=== PATIENT | female | born 1960 | race Two or more races ===

== ENCOUNTER 2020-09-04 11:01 | Inpatient (IN) | payer MEDICARE, OTHER ==
[~2020-09-04] VITALS: Ht 177.8 cm; Wt 108.8 kg
[2020-09-04] MEDS ORDERED: SODIUM CHLORIDE 0.9% 500 ML IVB ONE (12:00)
[2020-09-04 12:29] LABS: Basophils # (auto) 0.1 10 ^3/uL (0-0.2); Basophils % (auto) 0.5 % (0.0-2.0); Eosinophils # (auto) 0 10 ^3/uL (0-0.8); Eosinophils % (auto) 0.1 % (0.0-7.0); Hematocrit 35.6 % (36.0-46.0); Hemoglobin 11.4 g/dL (12.2-16.2); Lymphocytes # (auto) 0.5 10 ^3/uL (0.4-5.4); Lymphocytes % (auto) 4.7 % (10.0-50.0); Mean Corpuscular Hemoglobin 32.4 pg (28.0-32.0); Mean Corpuscular Hgb Conc. 32.2 g/dL (32.0-36.0); Mean Corpuscular Volume 100.6 fL (80.0-100.0); Monocytes # (auto) 0.8 10 ^3/uL (0-1.3); Neutrophils # (auto) 9.6 10 ^3/uL (1.6-8.6); Neutrophils % (auto) 87.7 % (37.0-80.0); Nucleated Red Blood Cells % 0.1 %; Platelet Count (auto) 308 10^3/uL (140-450); Red Blood Cells 3.54 10^6/uL (4.0-5.20); Red Cell Distribution Width 16.3 % (11.8-14.3); White Blood Cell 10.9 10^3/uL (4.4-10.8)
[2020-09-04 12:59] LABS: Albumin 3.9 g/dL (3.4-5.0); Calcium 8.9 mg/dL (8.5-10.1); Magnesium 2.6 mg/dL (1.6-2.6)
[2020-09-04 13:02] LABS: BUN/Creatinine Ratio 19.6; Bilirubin, Total 0.2 mg/dL (0.2-1.0); Total Protein 8.1 g/dL (6.4-8.2)
[2020-09-04 13:23] LABS: Potassium 5.6 mmol/L (3.5-5.1)
[2020-09-04] MEDS ORDERED: DEXTROSE (50%) 50ML SYRG IV ONE ×2 (13:45→23:45)
[2020-09-04] MEDS ORDERED: InsuLIN REG 1unit/0.01ml Soln (100units/ml) IV ONE (13:45)
[2020-09-04] MEDS ORDERED: CALCIUM GLUC 4.65meq/50ml D5AE 50 ML IV ONE ×2 (13:45→23:45)
[2020-09-04] MEDS ORDERED: SODIUM BICARBONATE 8.4% INJ 50ML SYRINGE IV ONE (13:45)
[2020-09-04 19:51] LABS: BUN/Creatinine Ratio 21.5; Calcium 8.6 mg/dL (8.5-10.1)
[2020-09-04 19:59] LABS: Potassium 6.4 mmol/L (3.5-5.1)
[2020-09-04] MEDS ORDERED: ALBUTEROL SULF HFA 90MCG INH 200DOSE IN SCH (22:00)
[2020-09-04] MEDS ORDERED: ALBUTEROL SULF HFA 90MCG INH 200DOSE IN PRN (22:00)
[2020-09-04] MEDS ORDERED: MORPHINE SULF INJ 2 MG/ML SYRINGE 1ML IV PRN (22:45)
[2020-09-04] MEDS ORDERED: ONDANSETRON HCL 4 MG/2 ML VIAL IV PRN (22:45)
[2020-09-04] MEDS ORDERED: MORPHINE SULFATE 4 MG/ML SYR/VIAL IV PRN (22:45)
[2020-09-04] MEDS ORDERED: NITROGLYCERIN 0.4 MG SL TAB SL PRN (22:45)
[2020-09-04] MEDS ORDERED: DOCUSATE SOD 100 MG CAP PO PRN (22:45)
[2020-09-04] MEDS ORDERED: InsuLIN REG 1unit/0.01ml Soln (100units/ml) SC ONE (23:45)
[2020-09-04] MEDS ORDERED: SODIUM ZIRCONIUM CYCL 10 GM PAK PO ONE (23:45)
[2020-09-04] MEDS ORDERED: SODIUM BICARBONATE 8.4 % INJ 50ML VIAL IV ONE (23:45)
[2020-09-05 02:11] LABS: Amphetamine Screen, Urine NEGATIVE (NEGATIVE); Barbiturate Scree,Urine NEGATIVE (NEGATIVE); Benzodiazephine Screen, Urine NEGATIVE (NEGATIVE); Cannabinoid Screen, Urine NEGATIVE (NEGATIVE); Cocaine Screen, Urine NEGATIVE (NEGATIVE); Opiate Scree,Urine POSITIVE (NEGATIVE); Phencyclidine Screen, Urine NEGATIVE (NEGATIVE)
[2020-09-05 02:18] LABS: Alcohol, Urine < 3.0 mg/dL (0-10)
[2020-09-05 02:19] LABS: Urine Amorphous Crystal FEW /hpf (None Seen); Urine Bacteria FEW /hpf (None Seen); Urine Blood Negative /uL (Negative); Urine Hyaline Cast FEW /lpf (0 - 2); Urine Specific Gravity 1.013 (1.001-1.035); Urine WBC 1 /hpf (0 - 5)
[2020-09-05] MEDS: SODIUM CHLOR 0.9% PF (SALINE LOCK) 10ML VIAL/SYR IV SCH ×3 (05:47→22:00)
[2020-09-05] MEDS ORDERED: FAMOTIDINE 20 MG TAB PO SCH (10:00)
[2020-09-05] MEDS: HEPARIN SODIUM (PORCINE) 5000 UNITS/ML 1ML VIAL SC SCH (10:00)
[2020-09-05] MEDS ORDERED: MULTIPLE VITAMIN TAB PO SCH (10:00)
[2020-09-05] MEDS ORDERED: ZINC SULFATE 220mg CAP or TAB PO SCH (10:00)
[2020-09-05 10:31] LABS: Basophils # (auto) 0 10 ^3/uL (0-0.2); Basophils % (auto) 0.1 % (0.0-2.0); Eosinophils # (auto) 0 10 ^3/uL (0-0.8); Eosinophils % (auto) 0.2 % (0.0-7.0); Hematocrit 35.1 % (36.0-46.0); Hemoglobin 11.4 g/dL (12.2-16.2); Lymphocytes # (auto) 1.1 10 ^3/uL (0.4-5.4); Lymphocytes % (auto) 10.5 % (10.0-50.0); Mean Corpuscular Hemoglobin 32.4 pg (28.0-32.0); Mean Corpuscular Hgb Conc. 32.6 g/dL (32.0-36.0); Mean Corpuscular Volume 99.5 fL (80.0-100.0); Monocytes # (auto) 1.1 10 ^3/uL (0-1.3); Neutrophils # (auto) 8.6 10 ^3/uL (1.6-8.6); Neutrophils % (auto) 79.2 % (37.0-80.0); Nucleated Red Blood Cells % 0.3 %; Platelet Count (auto) 329 10^3/uL (140-450); Red Blood Cells 3.53 10^6/uL (4.0-5.20); Red Cell Distribution Width 16.9 % (11.8-14.3); White Blood Cell 10.8 10^3/uL (4.4-10.8)
[2020-09-05 10:53] LABS: Albumin 3.8 g/dL (3.4-5.0); Calcium 8.7 mg/dL (8.5-10.1)
[2020-09-05 10:58] LABS: BUN/Creatinine Ratio 15.4; Bilirubin, Total 0.2 mg/dL (0.2-1.0); Total Protein 8.1 g/dL (6.4-8.2)
[2020-09-05] MEDS: ASCORBIC ACID 500 MG TAB PO SCH ×2 (10:59→22:00)
[2020-09-05 11:00] LABS: Potassium 6.4 mmol/L (3.5-5.1)
[2020-09-05] MEDS ORDERED: FUROSEMIDE 40 MG/4 ML VIAL IV ONE (11:15)
[2020-09-05] MEDS ORDERED: CALCIUM CHL 100MG/ML 1,000 MG in D5W 5% 100 ML IV ONE (11:15)
[2020-09-05] MEDS ORDERED: ALBUTEROL SULF 2.5 MG/0.5ML(0.5%) NEB SOLN NEB ONE (11:15)
[2020-09-05] MEDS ORDERED: DEXTROSE (50%) 50ML SYRG IV ONE (11:15)
[2020-09-05] MEDS ORDERED: SODIUM ZIRCONIUM CYCL 10 GM PAK PO ONE (11:15)
[2020-09-05] MEDS ORDERED: SODIUM BICARBONATE 8.4% INJ 50ML SYRINGE IV ONE (11:15)
[2020-09-05] MEDS ORDERED: InsuLIN REG 1unit/0.01ml Soln (100units/ml) IV ONE (11:15)
[2020-09-05] MEDS ORDERED: ALBUTEROL SULF 2.5 MG/0.5ML(0.5%) NEB SOLN ONE ×2 (11:20→11:23)
[2020-09-05] MEDS ORDERED: SODIUM CHLORIDE 0.9% 1,000 ML IV ONE (13:00)
[2020-09-05] MEDS: SODIUM ZIRCONIUM CYCL 10 GM PAK PO SCH (16:11)
--- NOTE | 2020-09-05 17:30 | NUR ---
Telemetry admit from [facility] admitted to Telemetry unit after SBAR received. Patient oriented to Renee Hunt RN, unit, room, bed, and unit policies regarding patient care and visiting hours. Patient now on continuous telemetry monitoring, tele box # [id number] and telemetry reading on arrival to unit is 106 ST. Patient placed on bedside oxygen @ 5LPM, weighed by bed scale and encouraged to call if she need something. All questions and concerns addressed, patient verbalized understanding. Note: Patient is lethargic. On O2 at 5 LPM. On Right eye patch Hx: Rt eye implant. Bed alarm on.
[2020-09-05] MEDS ORDERED: TRAM50TA2 PO (17:42)
[2020-09-05] MEDS ORDERED: LISI-275 PO (17:42)
[2020-09-05] MEDS ORDERED: IBUP800T24 PO (17:42)
--- NOTE | 2020-09-05 19:30 | NUR ---
Called the Pharmacy for Sodium Bicarbonate IV. Patient is lethargic. Endorsed patient to CHAUNCEY Rios.
[2020-09-05] MEDS: FUROSEMIDE 40 MG/4 ML VIAL IV SCH (19:32)
--- NOTE | 2020-09-05 19:55 | NUR ---
OPENING SHIFT NOTE Pt is resting in bed with eyes closed and resp rate is even and unlabored. Pt is on O2 5L by nc and skin is warm, dry and color is pink. Pt needs aggressive stimulation to get her to waken. Pt is able to state her name and that is all before she falls asleep again. Pt appears to be very lethargic and sedated. Will continue to monitor q1hr and prn. Bed is low, wheels are locked, and call light is with reach.
--- NOTE | 2020-09-05 21:00 | NUR ---
IV SITE IS SWOLLEN AND NOT ABLE TO FLUSH.
--- NOTE | 2020-09-05 21:15 | NUR ---
PT SAO2 DOWN IN THE LOW 80'S AND DIPPING DOWN TO 78%. RT PAGED STAT AND PT PLACED ON SIMPLE MASK 10L. SAO2 UP TO 95%. PT SKIN IS WARM AND DRY AND COLOR IS WNL.
--- NOTE | 2020-09-05 21:20 | NUR ---
RT ARRIVED, CALLED HOSPITALIST, AND PT MOVED CLOSER TO NURSES STATION. WHEN SETTLED IN ROOM 276-B PT PLACED ON CPAP. PT SAO2 STABLE 98%.
[2020-09-05 21:21] LABS: Phosphorus 9.2 mg/dL (2.5-4.90)
[2020-09-05 22:00] VITALS: BP 102/46
--- NOTE | 2020-09-05 23:45 | NUR ---
NEW IV STARTED BY BATTER MIXER HELEN. LEFT HAND 22G.
[2020-09-06] VITALS (43 sets, daily range): BP systolic 80–170; BP diastolic 38–129
--- NOTE | 2020-09-06 00:56 | NUR ---
PT SAO2 HAS BEEN DECREASING DOWN TO THE LOW 70'S AND HAVING TO FREQUENTLY WAKE PT AND ASK HER TO TAKE DEEP BREATHS TO GET SAO2 BACK UP ABOVE 90%. RT PAGED AND PT IS NOW PLACED ON BIPAP.
[2020-09-06] MEDS: SODIUM ZIRCONIUM CYCL 10 GM PAK PO SCH ×4 (01:40→22:08)
[2020-09-06] MEDS: HEPARIN SODIUM (PORCINE) 5000 UNITS/ML 1ML VIAL SC SCH (01:41)
[2020-09-06] MEDS: SODIUM BICARBONATE 50ML VIAL 50 ML in SOD CHL 0.45% 1,000 ML IV SCH ×5 (05:59→22:10)
[2020-09-06] MEDS: SODIUM CHLOR 0.9% PF (SALINE LOCK) 10ML VIAL/SYR IV SCH ×3 (05:59→22:00)
--- NOTE | 2020-09-06 07:45 | NUR ---
Opening Shift Note Assumed care of patient who is asleep in bed. Patient is on BiPap. No S/S of distress/SOB or pain. Patient has a sitter at bedside for safety. Instructed on POC and to call for assist PRN, will continue to monitor for changes Q1hr and PRN. Bed is locked, bed alarm on and in lowest position.
[2020-09-06] MEDS ORDERED: VANCOMYCIN PER PHARMACY 0 MG IV SCH (09:00)
[2020-09-06] MEDS ORDERED: VANCOMYCIN 1GM/250ML 250 ML IV ONE (09:00)
[2020-09-06] MEDS ORDERED: CLINDAMYCIN 300MG IV 50 ML IV ONE (09:15)
--- NOTE | 2020-09-06 09:30 | NUR ---
IV insertion IV access obtained, via clean sterile technique by inserting [20] gauge catheter at [RIGHT AC] after [2] attempt(s). IV secured properly. No trauma to site. Patient tolerated well.
[2020-09-06] MEDS ORDERED: AZITHROMYCIN 500MG/ 250ML 250 ML IV ONE (10:00)
[2020-09-06] MEDS: FUROSEMIDE 40 MG/4 ML VIAL IV SCH (10:44)
[2020-09-06 11:03] LABS: BUN/Creatinine Ratio 15.8; Calcium 7.9 mg/dL (8.5-10.1)
[2020-09-06 11:12] LABS: Potassium 7.2 mmol/L (3.5-5.1)
--- NOTE | 2020-09-06 11:21 | NUR ---
CRITICAL LAB VALUE CRITICAL LAB VALUE OF POTASSIUM 7.2. PAGED DR. JUARES TO NOTIFY OF CRITICAL LAB VALUE. NEW ORDERS OBTAINED. PER DR. JUARES TO PLEASE PAGE DR. SANTIAGO. WILL AWAIT CALL BACK. WILL CONTINUE TO MONITOR PATIENT.
[2020-09-06] MEDS ORDERED: FUROSEMIDE 40 MG/4 ML VIAL IV ONE (11:30)
[2020-09-06] MEDS ORDERED: SODIUM BICARBONATE 8.4% INJ 50ML SYRINGE IV ONE (11:30)
[2020-09-06] MEDS ORDERED: InsuLIN REG 1unit/0.01ml Soln (100units/ml) IV ONE (11:30)
[2020-09-06] MEDS ORDERED: DEXTROSE (50%) 50ML SYRG IV ONE (11:30)
[2020-09-06] MEDS ORDERED: CALCIUM GLUC 4.65meq/50ml D5AE 50 ML IV ONE (11:30)
--- NOTE | 2020-09-06 11:45 | NUR ---
DR. JUARES AND DR. SANTIAGO AT BEDSIDE FOR POC AND CRITICAL LAB VALUE OF POTASSIUM. PER DR. JUARES ORDERS RECEIVED FOR HYPERKALEMIA AND WILL CARRY THEM OUT. PER DR. SANTIAGO TO REPEAT POTASSIUM LEVEL TO DETERMINE THE TREND. DR. JUARES WOULD LIKE TO TRANSFER PATIENT TO [facility]. DR. JUARES SPOKE TO FAMILY AND PATIENT IS FULL CODE. WILL CONTINUE WITH POC.
--- NOTE | 2020-09-06 13:15 | NUR ---
DR. REGINO LACY AT BEDSIDE FOR POC. BIPAP CHANGES WERE MADE BY DR. LACY RATE CHANGED TO 18, IPAP TO 22 AND O2 TO 75%. WILL AWAIT ABG DRAW AT [address]. WILL PAGE [address] LACY WITH RESULTS. WILL CONTINUE TO MONITOR PATIENT.
[2020-09-06] MEDS ORDERED: SODIUM BICARBONATE 8.4% INJ 50ML SYRINGE ONE ×2 (13:23→21:59)
[2020-09-06] MEDS ORDERED: SODIUM BICARBONATE 8.4 % INJ 50ML VIAL IV ONE ×2 (13:30)
[2020-09-06] MEDS ORDERED: SUCCINYLCHOLINE CHLORIDE 20 MG/ML 10ML VIAL IV ONE (13:31)
[2020-09-06] MEDS ORDERED: ROCURONIUM 10MG/ML 10ML VIAL IV ONE (13:36)
--- NOTE | 2020-09-06 13:39 | NUR ---
MEDS FOR INTUBATION PER DR. LACY ETOMIDATE 60MG IVP ROCURONIUM 60MG IVP
--- NOTE | 2020-09-06 13:40 | NUR ---
INTUBATION DR. LACY AT BEDSIDE TO INTUBATE PATIENT. PATIENT WILL BE TRANSFERRED TO [facility] ROOM [address]. DR. JUARES NOTIFIED OF PATIENTS INTUBATION AND TRANSFER. WILL NOTIFY FAMILY OF TRANSFER.
--- NOTE | 2020-09-06 13:40 | NUR ---
PT INTUBATED AT BEDSIDE BY MD LACY DUE TO ALOC AND ACUTE HYPERCAPNIC RESP FAILURE. INTUBATED WITH AN 8.0 ETT SECURED AT 22 CM AT LIP LINE. PT WILL BE TRANSFERRED TO [facility].
--- NOTE | 2020-09-06 13:55 | NUR ---
TRANSFERRED TO [facility] WITH RT X2, RN X2 REPORT REC'D FROM [facility].
--- NOTE | 2020-09-06 14:00 | NUR ---
ASSESSMENT PT CONT NONRESPONSIVE TO DEEP STERNAL RUB SINCE BEFORE INTUBATION NO SEDATION ON BOARD. HAS EMPTY RT EYE SOCKET. LT EYE NONREACTIVE. NG TUBE INSERTED RT NARE WITH #16 FR, 60CM. PLACEMENT PER AIR BOLUS. VENT SETTINGS AC 20, VT 450, PEEP 8, FIO2 100%. DURING INTUBATION MUCH GASTRIC CONTENTS SUCTIONED OUT WITH MORE VIA ETT AFTER INTUBATION. LUNGS WITH COURSE RHONCHI THROUGHOUT. ST ON SCOPE. IV'S: #20 LT HAND, #22 LT AC INFUSING WELL. WOLFE PRESENT SINCE ADMISSION DRAINING DK JUSTIN URINE.
--- NOTE | 2020-09-06 14:09 | NUR ---
PHONE CALL MADE TO SISTER KALYANI IN REGARDS TO PATIENT TRANSFER AND INTUBATION. FAMILY AWARE AND WILL NOTIFY WHO IS BATTLING BRAIN CANCER AND IS NOT STABLE. NOTIFIED KALYANI OF PATIENT TRANSFER TO ROOM 262.
--- NOTE | 2020-09-06 14:10 | NUR ---
CXR DONE FOR ETT, NG PLACEMENT
[2020-09-06] MEDS ORDERED: SODIUM ZIRCONIUM CYCL 10 GM PAK ONE (14:59)
[2020-09-06] MEDS ORDERED: MIDAZOLAM DRIP 50 mg/50mL 50 ML IV ONE (17:46)
[2020-09-06] MEDS: CLINDAMYCIN 300MG IV 50 ML IV SCH (18:08)
--- NOTE | 2020-09-06 19:30 | NUR ---
OPEN NOTES ASSUMED CARE OF PATIENT. PATIENT RECEIVED SEDATED WITH IV VERSED AT 2MG/HR. PATIENT OPENING HER EYES AND WIGGLING FEET. TITRATED SEDATION TO KEEP PATIENT COMFORTABLE. INTUBATED ON PC MODE, RATE 22, PS 30, PEEP 8, FIO2 80%. LUNG SOUNDS COARSE. SUCTIONED MODERATE AMOUNT THICK CREAMY SECRETIONS. ORAL CARE DONE. PATIENT IS FEBRILE, TEMP 101.8F ORALLY. COOLING MEASURES INITIATED. NO RECTAL CABLE AVAILABLE, DOING TEMP CHECK HOURLY. SINUS TACHYCARDIA HR 120'S /MIN, BP LABILE GOES 80-170 MMHG SYSTOLIC. LEFT NARES NGT PLACEMENT CHECKED BY AUSCULTATION WOLFE CATHETER IN PLACED WITH YELLOWISH OUTPUT CLEAR FULL ASSESSMENT - REFER INTERVENTIONS
[2020-09-06] MEDS: MIDAZOLAM DRIP 50 mg/50mL 50 ML IV SCH (19:58)
--- NOTE | 2020-09-06 20:00 | NUR ---
SPONGE BATH DONE
[2020-09-06] MEDS: ACETAMINOPHEN 325 MG TAB PO PRN (20:40)
[2020-09-06 22:22] LABS: Creatinine, Urine 126 mg/dL (30.0-125.0); Sodium Urine 33 mmol/L (40-220)
[2020-09-07] VITALS (78 sets, daily range): BP systolic 82–118; BP diastolic 45–88
--- NOTE | 2020-09-07 00:20 | NUR ---
HOSPITALIST PAGED FOR LACTIC ACID RESULT
[2020-09-07] MEDS: MIDAZOLAM DRIP 50 mg/50mL 50 ML IV SCH ×3 (00:32→21:00)
[2020-09-07] MEDS: CLINDAMYCIN 300MG IV 50 ML IV SCH ×3 (00:54→17:50)
--- NOTE | 2020-09-07 01:30 | NUR ---
HOSPITALIST HASN'T CALLED BACK LACTIC ACID TREND GOING DOWN PATIENT ON IVF AT 120ML/HR BP STABLE
[2020-09-07 04:35] LABS: Basophils # (auto) 0.1 10 ^3/uL (0-0.2); Basophils % (auto) 0.7 % (0.0-2.0); Eosinophils # (auto) 0 10 ^3/uL (0-0.8); Eosinophils % (auto) 0.5 % (0.0-7.0); Hematocrit 27.9 % (36.0-46.0); Hemoglobin 9.4 g/dL (12.2-16.2); Lymphocytes # (auto) 1.4 10 ^3/uL (0.4-5.4); Lymphocytes % (auto) 18.2 % (10.0-50.0); Mean Corpuscular Hemoglobin 32.5 pg (28.0-32.0); Mean Corpuscular Hgb Conc. 33.8 g/dL (32.0-36.0); Mean Corpuscular Volume 96.3 fL (80.0-100.0); Monocytes # (auto) 0.4 10 ^3/uL (0-1.3); Neutrophils # (auto) 5.7 10 ^3/uL (1.6-8.6); Neutrophils % (auto) 75.6 % (37.0-80.0); Nucleated Red Blood Cells % 0.4 %; Platelet Count (auto) 219 10^3/uL (140-450); Red Blood Cells 2.89 10^6/uL (4.0-5.20); Red Cell Distribution Width 16.7 % (11.8-14.3); White Blood Cell 7.6 10^3/uL (4.4-10.8)
--- NOTE | 2020-09-07 04:45 | NUR ---
TEMP 100.2F ORALLY SPONGE BATH DONE. LINENS CHANGED. PERINEAL CARE DONE,CATHETER CARE DONE. REPOSITIONED ORAL CARE DONE.
[2020-09-07 04:51] LABS: Calcium 7.6 mg/dL (8.5-10.1); Potassium 3.4 mmol/L (3.5-5.1)
[2020-09-07] MEDS: SODIUM ZIRCONIUM CYCL 10 GM PAK PO SCH (05:00)
--- NOTE | 2020-09-07 05:00 | NUR ---
RE-ASSESS TEMP TEMP 99.5F ORALLY
--- NOTE | 2020-09-07 06:26 | NUR ---
PATRICIA BEACH FOR CRITICAL LAB RESULT
[2020-09-07] MEDS: SODIUM CHLOR 0.9% PF (SALINE LOCK) 10ML VIAL/SYR IV SCH (06:28)
--- NOTE | 2020-09-07 07:20 | NUR ---
REPORT RECEIVED FROM SURVEY SUPERVISOR NURSE. PATIENT RESTING IN BED AT THIS TIME. RESPIRATIONS EVEN AND UNLABORED, INTUBATED AND SEDATED. NO SIGNS OF ACUTE DISTRESS NOTED. BED IN LOW POSITION. WILL CONTINUE TO MONITOR.
--- NOTE | 2020-09-07 07:20 | NUR ---
REPORT REPORT GIVEN TO CHAUNCEY ROBLES
[2020-09-07] MEDS: SODIUM BICARBONATE 50ML VIAL 50 ML in SOD CHL 0.45% 1,000 ML IV SCH (07:29)
--- NOTE | 2020-09-07 08:00 | NUR ---
TEMP TEMP 100.7F ORALLY, STARTED COOLING MEASURES. WILL CONTINUE TO MONITOR.
--- NOTE | 2020-09-07 08:00 | NUR ---
Respiratory note: ABG RESULTS REPORTED TO DR LACY VIA TELEPHONE. NEW VENT ORDERS ARE FOLLOWS: PCV RR 16, PI 26, PEEP 8, I TIME 0.9., FIO2 55%.FOLLOW UP ABG IN AN HOUR. CHANGES MADE AND REPORTED TO CHAUNCEY ROBLES.
[2020-09-07] MEDS: SODIUM CHLORIDE 0.9% 1,000 ML IV SCH ×2 (08:45→18:45)
[2020-09-07 09:10] LABS: Lactic Acid w/Reflex 2.1 mmol/L (0.4-2.0)
[2020-09-07] MEDS ORDERED: FAMOTIDINE 20 MG TAB PO SCH (10:00)
--- NOTE | 2020-09-07 10:02 | NUR ---
DR Garrick JUARES AT BEDSIDE TO ASSESS PATIENT AND DISCUSS PLAN OF CARE. ALL ORDERS NOTED IN CHART.
[2020-09-07] MEDS ORDERED: PANTOPRAZOLE 40 MG/10 ML VIAL INJ IV ONE ×2 (10:13→10:15)
[2020-09-07] MEDS: AZITHROMYCIN 500MG/ 250ML 250 ML IV SCH (10:14)
[2020-09-07] MEDS: FUROSEMIDE 40 MG/4 ML VIAL IV SCH (10:15)
--- NOTE | 2020-09-07 10:30 | NUR ---
TEMP REASSESSED TEMP IS 98.5F ORALLY. WILL CONTINUE TO MONITOR.
--- NOTE | 2020-09-07 10:38 | NUR ---
WOUND CARE NOTE: Added patient to wound care list due to low Alok score of 10 and intubation status, putting patient to high risk for skin breakdown. Patient is 59 years old female with admitting diagnosis of Hyperkalemia. Patient is resting in SDU low air loss bed in Rm. 262. Patient is intubated, sedated and mechanically ventilated. Patient appears to be in no pain using Alfaro Mejía Faces Pain Scale. Per patient's nurse, CHAUNCEY Weathers,patient is wound free. RECOMMENDATION: Nursing to continue with BID/PRN cleaning and application of Barrier cream to sacral buttocks as preventative, frequent turning and repositioning schedule as condition permits, redistribute pressure points with pillows, elevate heels on pillows, continue monitoring by wound care while patient is intubated and Alok score is <18.
--- NOTE | 2020-09-07 11:10 | NUR ---
MUSCULOSKELETAL PHYSIOTHERAPIST AT BEDSIDE.
--- NOTE | 2020-09-07 12:52 | NUR ---
PAGED DR Garrick JUARES FOR PATIENTS DECREASE IN BLOOD PRESSURE. AWAITING CALL BACK FOR ORDERS.
[2020-09-07] MEDS ORDERED: NOREPINEPHRINE 8 MG/250ML KIT 250 ML IV ONE (13:02)
--- NOTE | 2020-09-07 13:05 | NUR ---
DR Garrick JUARES CALLED BACK AND DISCUSSED PATIENTS VITAL SIGNS. PER MD START PATIENT ON LEVOPHED DRIP PER PROTOCOL.
--- NOTE | 2020-09-07 13:07 | NUR ---
DR TORREZ ON UNIT TO DISCUSS PLAN OF CARE. NO NEW ORDERS AT THIS TIME.
[2020-09-07] MEDS: NOREPINEPHRINE 8 MG/250ML KIT 250 ML IV SCH (13:15)
--- NOTE | 2020-09-07 14:25 | NUR ---
Nutrition Assessment Est energy needs 2416-2817 kcal (11-14 kcal/kg BW 123kg) Est protein needs 68-89g (1-1.3g/kg IBW 68kg) Will monitor and reassess prn. Addendum: 09/07/20 at [address] Amended: Links added.
[2020-09-07] MEDS: ACETAMINOPHEN 325 MG TAB PO PRN (17:41)
--- NOTE | 2020-09-07 19:05 | NUR ---
DR LACY AT [facility] TO ASSESS PATENT AND DISCUSS PLAN OF CARE. PER MD START PATIENT ON ALBUTEROL TREATMENTS Q4HR SCHEDULED. ALL ORDERS NOTED IN CHART.
[2020-09-07] MEDS: ALBUTEROL SULF 2.5 MG/0.5ML(0.5%) NEB SOLN NEB SCH (22:00)
[2020-09-08] VITALS (39 sets, daily range): BP systolic 97–139; BP diastolic 45–69
[2020-09-08] MEDS: CLINDAMYCIN 300MG IV 50 ML IV SCH ×3 (01:00→17:55)
[2020-09-08] MEDS: ALBUTEROL SULF 2.5 MG/0.5ML(0.5%) NEB SOLN NEB SCH ×5 (02:00→22:13)
[2020-09-08 04:08] LABS: Calcium 7.6 mg/dL (8.5-10.1)
[2020-09-08 04:11] LABS: BUN/Creatinine Ratio 28.1
[2020-09-08 04:21] LABS: Potassium 2.9 mmol/L (3.5-5.1)
--- NOTE | 2020-09-08 06:39 | NUR ---
New order, Potassium 40meq IV.
--- NOTE | 2020-09-08 07:00 | NUR ---
Report received from Kristi RN Patient here post overdose on [place]. RESP: mechanical ventillation FIO2 50% , PC 26 rate of 16, PEEP 8, SPO2 91% CARDIAC: NS-Tachy, HR 126, BP 127/61 GI: NG tube left nare, BM 12/ black large : Goel to gravity 900 ml output SKIN: right eye patch Will continue to monitor
--- NOTE | 2020-09-08 07:57 | NUR ---
Pt has had fever this shift. Ice packs and Tylenol given but lowest temp went was 100.1. Pt suctioned as needed. Report given to AM shift, care endorsed. .
[2020-09-08] MEDS: POTASSIUM CHL 20MEQ/100ML 100 ML IV SCH ×2 (08:00→10:44)
[2020-09-08] MEDS: SODIUM CHLORIDE 0.9% 1,000 ML IV SCH (08:00)
--- NOTE | 2020-09-08 08:00 | NUR ---
Initial Contact Patient had moderate BM, soft formed black/green in color. ETT inline suctioning small, yellow, creamy. Orally secretions are clear thin and copious. Oral care complete, patient repositioned, partial bedding change, partial bed bath.
--- NOTE | 2020-09-08 08:15 | NUR ---
Fever 101.5 RN bedside, Ice packs and Acetaminophen 650mg via NG tube. Will continue to monitor.
--- NOTE | 2020-09-08 08:45 | NUR ---
Dr. Sanford bedside Updated on status, exam bedside. Patient withdraws to pain, left pupil responsive, right eye surgical. No new orders. Dr. Sanford in agreement with weaning trials as indicated.
[2020-09-08] MEDS: ACETAMINOPHEN 325 MG TAB PO PRN ×2 (08:47→08:56)
--- NOTE | 2020-09-08 09:59 | NUR ---
Assessment Patient is a 59 year old female, patient is sedated. SW called sister Lavern to conduct assessment on patient. Per Lavern, prior to being admitted to [facility], patient was alert oriented, ambulatory and could do all ADL's independently. 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 Per Lavern, patient receives social security benefits as income. Per Lavern, patient will return home post discharge and sister will provide transportation post discharge. Per Lavern, patient does not have advance directive file at [facility]. Discharge planning: Patient will return home post discharge, patient will follow up care with PCP post discharge. SW will provide advance directive to patient. There are no other discharge needs to address at the moment. Addendum: 09/08/20 at 1005 by DERICK TOSCANO Amended: Links added.
--- NOTE | 2020-09-08 10:09 | NUR ---
Dr. Harvey On unit. Updated on status. No new orders. He spoke with sister yesterday and requested RN to reinforce and family teach plan of care.
--- NOTE | 2020-09-08 11:00 | NUR ---
Dr. Garcia On unit, updated on status. New order for an additional 40MEQ of potassium and recheck labs in the evening and call if needed.
[2020-09-08] MEDS: PANTOPRAZOLE 40 MG/10 ML VIAL INJ IV SCH (11:13)
[2020-09-08] MEDS: FUROSEMIDE 40 MG/4 ML VIAL IV SCH (11:13)
[2020-09-08] MEDS: AZITHROMYCIN 500MG/ 250ML 250 ML IV SCH (11:13)
--- NOTE | 2020-09-08 12:07 | NUR ---
RN bedside Patient repositioned, repacked ice packs and completed oral care.
--- NOTE | 2020-09-08 14:11 | NUR ---
Daughter called Updated on status and plan of care. She requested to speak with her mother over speaker phone if possible. RN arranged for 1700 to do that.
[2020-09-08] MEDS: MIDAZOLAM DRIP 50 mg/50mL 50 ML IV SCH ×2 (14:26→19:23)
--- NOTE | 2020-09-08 16:36 | NUR ---
Patient sister Lavern stated that her sister to return home post discharge. Lavern stated that she would take care of her sister post discharge and sister will provide transportation post discharge.
[2020-09-08] MEDS ORDERED: POTASSIUM CHL 20MEQ/100ML 100 ML IV ONE ×3 (17:57→21:17)
[2020-09-08] MEDS: D5W/SOD CHL 0.9%/KCL 40MEQ 1,000 ML IV SCH (18:04)
--- NOTE | 2020-09-08 18:43 | NUR ---
Dr. Delcid New orders for weaning trials tomorrow.
--- NOTE | 2020-09-08 19:01 | NUR ---
End of Shift Patient remains intubated. Patient has been febrile throughout shift, ice packs and acetaminophen NG tube. RESP: no changes to vent settings Sedation Versed 10 mg/hr NEURO: moves all extremities, not on command Temp 100.4-102.2 CARDIAC: NS - tachycardia +3 pitting edema GI: NG tube clamped large black soft formed stool Patient received K+ replacement 30 MEQ,40 MEQ ordered.
--- NOTE | 2020-09-08 19:23 | NUR ---
Report to [facility] RN
--- NOTE | 2020-09-08 21:38 | NUR ---
Pt stable at shift change. Pt noted to be coughing a lot. Suction performed, minimal secretions removed. Suction performed again with same result. Pt still coughint but a little less. Titrated Versed up by 1 and is now infusing at 11. Will continue to monitor.
--- NOTE | 2020-09-08 21:49 | NUR ---
Elevated BP 179/119. Stopped Levophed. new BP 105/78.
--- NOTE | 2020-09-08 22:04 | NUR ---
Temp rising, now 100.6, Tylenol given via NGT. BP down to 92/58, Levophed restarted at 4mcg/hr. Will continue to monitor.
[2020-09-09] VITALS (54 sets, daily range): BP systolic 85–159; BP diastolic 45–75
[2020-09-09] MEDS: CLINDAMYCIN 300MG IV 50 ML IV SCH ×3 (01:32→19:46)
[2020-09-09] MEDS: MIDAZOLAM DRIP 50 mg/50mL 50 ML IV SCH ×5 (01:48→19:34)
[2020-09-09] MEDS: ALBUTEROL SULF 2.5 MG/0.5ML(0.5%) NEB SOLN NEB SCH ×6 (02:00→22:00)
[2020-09-09] MEDS ORDERED: ACETAMINOPHEN 650 MG RECT SUPP PR ONE (03:15)
--- NOTE | 2020-09-09 07:00 | NUR ---
No changes this shift. Pt still has fever that responds to Tylenol but only for 2-3 hours and then goes back up. Pt noted to be biting ET tube and possibly has pain. New order received for Fentanyl. Report given to AM shift, care endorsed.
--- NOTE | 2020-09-09 07:00 | NUR ---
Received report from Beata GROSSMAN Patient remains intubated and sedated. Patient remains febrile through shift. Tylenol and Ice packs managed her temperature. NEURO: patient moves all extremities, withdraws to pain CARDIAC: NSR , HR 60-80's, BP 129/62 RESP: Vent FIO2 50%, PEEP 8, PS 16 GI: NG clamped. : Goel catheter to gravity 1200 ml urine output
[2020-09-09 07:11] LABS: Hematocrit 27.4 % (36.0-46.0); Hemoglobin 8.9 g/dL (12.2-16.2); Mean Corpuscular Hemoglobin 31.5 pg (28.0-32.0); Mean Corpuscular Hgb Conc. 32.5 g/dL (32.0-36.0); Mean Corpuscular Volume 96.9 fL (80.0-100.0); Platelet Count (auto) 283 10^3/uL (140-450); Red Blood Cells 2.82 10^6/uL (4.0-5.20); Red Cell Distribution Width 17.3 % (11.8-14.3); White Blood Cell 16.5 10^3/uL (4.4-10.8)
[2020-09-09 07:20] LABS: Basophils % (manual) 0 (0.0-2.0); Blast Cells 0; Eosinophils % (manual) 0 (0-7); Myelocytes % 0; Promyelocytes % 0; Reactive Lymphocytes 0
[2020-09-09 07:38] LABS: Albumin 2.7 g/dL (3.4-5.0); Calcium 8.8 mg/dL (8.5-10.1); Potassium 3.8 mmol/L (3.5-5.1)
[2020-09-09 07:42] LABS: BUN/Creatinine Ratio 29.9; Band Neutrophils % (manual) 2; Bilirubin, Total 0.4 mg/dL (0.2-1.0); Lymphocytes % (manual) 5 (10.0-50.0); Metamyelocytes % 3; Monocytes % (manual) 7 (0-12); Total Protein 6.8 g/dL (6.4-8.2)
--- NOTE | 2020-09-09 08:00 | NUR ---
Initial Contact Patient arousable to stimulation, coughing. Does not open eyes or follow commands on sedation Versed 15 mg. Patient on ice packs for fever, has been given Acetaminophen.
--- NOTE | 2020-09-09 08:30 | NUR ---
Dr. Lane bedside Updated on status. Bedside exam. No new orders.
[2020-09-09] MEDS: AZITHROMYCIN 500MG/ 250ML 250 ML IV SCH (09:42)
[2020-09-09] MEDS: FUROSEMIDE 40 MG/4 ML VIAL IV SCH (09:42)
[2020-09-09] MEDS: PANTOPRAZOLE 40 MG/10 ML VIAL INJ IV SCH (09:42)
--- NOTE | 2020-09-09 10:05 | NUR ---
RN bedside Oral care completed, patient repositioned.
--- NOTE | 2020-09-09 10:07 | NUR ---
Dr. Harvey bedside Updated on status. Discussed elevated WBC, new order for velez cultures.
[2020-09-09 11:15] LABS: Urine Bacteria FEW /hpf (None Seen); Urine Blood Negative /uL (Negative); Urine Budding Yeast OCCASIONAL /hpf (None Seen); Urine Hyaline Cast FEW /lpf (0 - 2); Urine Specific Gravity 1.015 (1.001-1.035); Urine WBC 2 /hpf (0 - 5)
--- NOTE | 2020-09-09 12:00 | NUR ---
RN bedside Patient repositioned, oral care completed.
--- NOTE | 2020-09-09 13:13 | NUR ---
RN bedside Patient repositioned, hygiene completed with partial new bedding.
--- NOTE | 2020-09-09 14:08 | NUR ---
Nutrition Followup Note Wt 124kg Pt is intubated in [facility] s/p drug overdose resulting in respiratory distress per MD note. Spoke to RN to verify wt, pt is 124kg today per RN from the bed scale. Pt is NPO with no alternate nutrition ordered for pt. Consider starting TF when medically feasible Est energy needs 7064-2558 kcal (11-14 kcal/kg BW 123kg) Est protein needs 68-89g (1-1.3g/kg IBW 68kg) Will monitor and reassess prn. Labs: BUN 59H, Creat 1.97H, Alb 2.7L, GLUC 154H BM: pt with 1 BM 09/09 per Rn note Skin: BS 10 high risk, full details in menagerie caretaker note. PES: Inadequate oral intake r/t current medical condition aeb pt with NPo diet order Altered nutrition related labs r/t chronic medical condition and current medical condition aeb elevated RFTs, hypergylcemia Comments 1) Continue to monitor po status, labs, skin 2) refer pt to OPD on Dc 3) Continue current plan of care Expected Outcomes/Goals: 1) Consider starting pt on alternate nutrition if pt NPO >48hrs 2) Consider Glucerna 1.2 at a goal rate of 50 ml /hr d/t to CKD no HD 3) Advance diet as medically feasible 4) f/u 2-3 days
[2020-09-09] MEDS: D5W/SOD CHL 0.9%/KCL 40MEQ 1,000 ML IV SCH (15:52)
[2020-09-09] MEDS: NOREPINEPHRINE 8 MG/250ML KIT 250 ML IV SCH ×2 (16:39→19:46)
--- NOTE | 2020-09-09 19:23 | NUR ---
Report to Rox GROSSMAN
--- NOTE | 2020-09-09 19:30 | NUR ---
Received report, assumed care, full assessment done; see interventions.
[2020-09-09] MEDS: fentaNYL Drip 2500mCg/250mlNS 250 ML IV SCH (19:45)
[2020-09-09] MEDS: ACETAMINOPHEN 325 MG TAB PO PRN (21:28)
--- NOTE | 2020-09-09 21:30 | NUR ---
Rectal temp 101.1; cooling measures initiated, Tylenol administered; see eMAR.
[2020-09-10] VITALS (76 sets, daily range): BP systolic 92–125; BP diastolic 40–53
[2020-09-10] MEDS: fentaNYL Drip 2500mCg/250mlNS 250 ML IV SCH ×2 (00:35→16:13)
[2020-09-10] MEDS: CLINDAMYCIN 300MG IV 50 ML IV SCH (00:59)
[2020-09-10] MEDS: MIDAZOLAM DRIP 50 mg/50mL 50 ML IV SCH ×6 (00:59→20:10)
[2020-09-10] MEDS: ALBUTEROL SULF 2.5 MG/0.5ML(0.5%) NEB SOLN NEB SCH ×6 (02:00→22:48)
[2020-09-10 03:29] LABS: Calcium 8.4 mg/dL (8.5-10.1); Potassium 3.9 mmol/L (3.5-5.1)
[2020-09-10 03:37] LABS: Albumin 2.3 g/dL (3.4-5.0); BUN/Creatinine Ratio 35.8; Bilirubin, Total 0.3 mg/dL (0.2-1.0); Total Protein 5.9 g/dL (6.4-8.2)
[2020-09-10 03:41] LABS: Hematocrit 24.9 % (36.0-46.0); Hemoglobin 8.3 g/dL (12.2-16.2); Mean Corpuscular Hemoglobin 32.2 pg (28.0-32.0); Mean Corpuscular Hgb Conc. 33.2 g/dL (32.0-36.0); Mean Corpuscular Volume 97.3 fL (80.0-100.0); Platelet Count (auto) 266 10^3/uL (140-450); Red Blood Cells 2.56 10^6/uL (4.0-5.20); Red Cell Distribution Width 17.3 % (11.8-14.3); White Blood Cell 15.5 10^3/uL (4.4-10.8)
[2020-09-10 03:55] LABS: Basophils % (manual) 0 (0.0-2.0); Blast Cells 0; Eosinophils % (manual) 0 (0-7); Metamyelocytes % 0; Myelocytes % 0; Promyelocytes % 0; Reactive Lymphocytes 0
[2020-09-10 04:53] LABS: Band Neutrophils % (manual) 12; Lymphocytes % (manual) 12 (10.0-50.0); Monocytes % (manual) 9 (0-12)
--- NOTE | 2020-09-10 07:11 | NUR ---
Respiratory note: RECEIVED PATIENT ON V22 CARROLL VENT ORALLY INTUBATED WITH AN 8.0 ETT SECURED VIA FOX AT THE 24CM MARKING AND MECHANICALLY VENTILATED WITH THE CHARTED SETTINGS. SPO2 98%, LUNG SOUNDS SLIGHT EXP WHEEZE BUT AERATED, NO SECRETIONS WHEN SUCTIONED. SKIN IS WARM/DRY TO THE TOUCH AND IS INTACT NEAR FOX SITE. THERE IS A NGT IN THE RIGHT NARE AND IT IS SECURED TO THE ETT. PITTING EDEMA NOTED IN BILATERAL UPPER AND LOWER EXTREMITIES, AND LEG SEQUENTIALS ARE IN PLACE AND OPERATIONAL. PATIENT IS UNRESPONSIVE TO BOTH VERBAL/TACTILE STIMULI AND IS SEDATED ON VERSED AND FENTANYL DRIPS. SHE IS RESTING COMFORTABLY AND TOLERATING VENT WELL, NO CHANGES MADE. VENT PLUGGED INTO RED OUTLET AND ALL ALARMS ARE SET AND AUDIBLE. WILL CONTINUE TO ASSESS PATIENT WELL VENTILATOR FUNCTION. [employer] RUN INLINE.
--- NOTE | 2020-09-10 08:30 | NUR ---
PT RESTING NO DISTRESS NOTED. BREATHING EVEN AND UNLABORED. SEDATED AND INTUBATED. SEE IV SPREADSHEET FOR TITRATION. COMPLETE PHYSICAL ASSESSMENT UNDER INTERVENTIONS. BED LOCKED FOR SAFETY AND ALARMS IN PLACE. WILL CONTINUE TO MONITOR.
[2020-09-10] MEDS: D5W/SOD CHL 0.9%/KCL 40MEQ 1,000 ML IV SCH ×2 (08:45→11:53)
[2020-09-10] MEDS: FUROSEMIDE 40 MG/4 ML VIAL IV SCH (09:28)
[2020-09-10] MEDS: PANTOPRAZOLE 40 MG/10 ML VIAL INJ IV SCH (09:28)
[2020-09-10] MEDS ORDERED: levoFLOXacin 500MG 100 ML IV SCH (10:00)
[2020-09-10] MEDS: NOREPINEPHRINE 8 MG/250ML KIT 250 ML IV SCH (13:15)
--- NOTE | 2020-09-10 15:25 | NUR ---
PT REPOSITIONED ATTEMPTED TO REPOSITION PT, HR DECREASED INTO THE 40S WITH POX% IN THE 70S. HAVING COUGHING EPISODES, PT SUCTIONED AND PLACED SEMI FOWLERS. VS BACK TO BASELINE HR 63, POX 99%, BP 114/51. WILL CONTINUE TO MONITOR.
--- NOTE | 2020-09-10 16:16 | NUR ---
MD AT BEDSIDE SENIOR QUALITY TECHNICIAN AT BEDSIDE, MADE CHANGES TO VENT. INFORMED RT. ORDER FOR XRAY TODAY AND DAILY XRAY.
--- NOTE | 2020-09-10 17:59 | NUR ---
REPOSITION ORAL CARE DONE AND PILLOWS REPOSITIONED. ETT SUCTIONED, WITH MINIMAL SECRETIONS.
--- NOTE | 2020-09-10 18:12 | NUR ---
Respiratory note: RECEIVED PT ON VENT V22, VENT CONNECTED TO RED OUTLET AND O2 SOURCE ALARMS ARE SET AND AUDIBLE. AMBU BAG AND MASK AT BEDSIDE. BS ARE COURSE AND AUDIBLE. AMBU BAG AND MASK AT BEDSIDE. NO VENT CHANGES MADE. WILL CONTINUE TO MONITOR.
--- NOTE | 2020-09-10 19:10 | NUR ---
Shift Open Note Received bed side shift report and assumed care, patient is currently intubated with o2 sat of 93% patient sedated with Fentanyl and Versed, patient has a Goel draining to gravity and is resting quietly without s/s of distress.
--- NOTE | 2020-09-10 19:23 | NUR ---
CLOSING NOTE PT RESTING. NO DISTRESS NOTED. REPORT GIVEN TO FIDELIA RN. REMAINS INTUBATED AND SEDATED.
--- NOTE | 2020-09-10 22:48 | NUR ---
Respiratory note: AT BEDSIDE FOR ROUTINE VENT CHECK NO CHANGES DONE AT THIS TIME. MED NEB TX GIVEN INLINE WITHOUT ADVERSE REACTION NOTED. SXD VIA ETT FOR THIN BLOODY CLEAR. NO CHANGES MADE WILL CONTINUE TO MONITOR.
--- NOTE | 2020-09-10 23:45 | NUR ---
Respiratory Paged Patient Oxygen Decreasing to the low 80's patient
--- NOTE | 2020-09-10 23:50 | NUR ---
FIO2 INCREASED TO 50% VIA VENTILATOR DUE TO DESATURATION. CHAUNCEY MONTOYA COMMUNICATED ON O2 CHANGE. WILL CONTINUE TO MONITOR.
[2020-09-11] VITALS (99 sets, daily range): BP systolic 81–150; BP diastolic 45–109
[2020-09-11] MEDS: MIDAZOLAM DRIP 50 mg/50mL 50 ML IV SCH ×3 (00:11→19:42)
[2020-09-11] MEDS: ALBUTEROL SULF 2.5 MG/0.5ML(0.5%) NEB SOLN NEB SCH ×6 (02:40→22:00)
--- NOTE | 2020-09-11 02:41 | NUR ---
Respiratory note: AT BEDSIDE FOR ROUTINE VENT CHECK NO CHANGES DONE AT THIS TIME. NO CHANGES MADE WILL CONTINUE TO MONITOR.
--- NOTE | 2020-09-11 04:00 | NUR ---
Morning Care Provided CHG wipe bath, partial linen change, gown change jaqueline area care and reposition patient, patient tolerated process with moderate distress. patient had a period of oxygen desaturation during morning care, patient provided with 100% oxygen which patient then recovered.
[2020-09-11 04:44] LABS: Hematocrit 26.6 % (36.0-46.0)
[2020-09-11 04:46] LABS: Hemoglobin 8.5 g/dL (12.2-16.2); Mean Corpuscular Hemoglobin 31.7 pg (28.0-32.0); Mean Corpuscular Hgb Conc. 31.9 g/dL (32.0-36.0); Mean Corpuscular Volume 99.2 fL (80.0-100.0); Platelet Count (auto) 296 10^3/uL (140-450); Red Blood Cells 2.68 10^6/uL (4.0-5.20); Red Cell Distribution Width 17.6 % (11.8-14.3); White Blood Cell 12.7 10^3/uL (4.4-10.8)
--- NOTE | 2020-09-11 05:00 | NUR ---
Increased Sedation Increased Fentanyl 150 due to patient bucking the vent patient appears to be doing better on the vent at this time.
[2020-09-11 05:07] LABS: Potassium 4.4 mmol/L (3.5-5.1)
[2020-09-11 05:18] LABS: Albumin 2.4 g/dL (3.4-5.0); BUN/Creatinine Ratio 36.5; Bilirubin, Total 0.2 mg/dL (0.2-1.0); Calcium 8.5 mg/dL (8.5-10.1); Total Protein 6.7 g/dL (6.4-8.2)
[2020-09-11 05:32] LABS: Basophils % (manual) 0 (0.0-2.0); Blast Cells 0; Metamyelocytes % 0; Myelocytes % 0; Promyelocytes % 0; Reactive Lymphocytes 0
--- NOTE | 2020-09-11 06:22 | NUR ---
Shift END Note Will provide shift report and endorse care, patient is currently intubated and sedated, during the shift patient had a couple of episodes of bucking the vent patient sedation increased at that time. patient remained stable through out the shift, patient is currently resting in bed without s/s of distress at this time.
[2020-09-11 06:55] LABS: Band Neutrophils % (manual) 10; Eosinophils % (manual) 5 (0-7); Lymphocytes % (manual) 13 (10.0-50.0); Monocytes % (manual) 6 (0-12)
--- NOTE | 2020-09-11 09:45 | NUR ---
DR TORREZ AT BEDSIDE UPDATED ON PATIENT'S STATUS WITH NEED TO INCREASE FIO2 TO 50% DURING CPHT DUE TO INCREASE COUGH WHEN TURNING OR PERFORMING ADL'S, PATIENT SATURATION DROPS TO 70%. PATIENT UNSTABLE FOR THIS NURSE WELL WHEN ASSESSING. DR TORREZ ALSO AWARE OF FAMILY REQUESTING A PHONE CALL TO PROVIDE UPDATE. MD CONTACTED NEXT OF KIN AND NOTIFIED OF STATUS. NO ORDERS RECEIVED AT THIS TIME.
--- NOTE | 2020-09-11 09:53 | NUR ---
DR TORREZ SPOKE WITH PATIENTS SISTER JIGNESH OVER THE PHONE DISCUSSED PATIENTS STATUS
--- NOTE | 2020-09-11 10:00 | NUR ---
UNABLE TO TURN PATIENT AT THIS TIME, UNSTABLE. COUGHING SPASMS. MDS AWARE.
--- NOTE | 2020-09-11 10:50 | NUR ---
CALL RECEIVED FROM FAMILY FLAVIO, PATIENT'S DAUGHTER REQUESTING DR TORREZ TO CALL LILLYDebra EGAN . WILL BE NOTIFIED.
--- NOTE | 2020-09-11 11:32 | NUR ---
[facility] SPOKE WITH DAY SHIP SCRAPER DEPUTCyndy FERREIRA WHO RELEASED BODY "WITH NO CASE NUMBER, WE WILL WORK WITH MORTUARY, NO FURTHER ACTION IS NEEDED AT THIS TIME". BODY WILL BE PREPARED FOR [place] TRANSFER.
--- NOTE | 2020-09-11 12:35 | NUR ---
PULMONOLOGY AT BEDSIDE DR BLEVINS UPDATED ON PATIENT'S STATUS AND NEED TO INCREASE FIO2 OVERNIGHT DUE TO COUGHING SPASMS AND DECREASE OXYGENATION. MD ALSO AWARE OF PATIENT UNSTABLE FOR TURNS AND ADLS DUE TO INCREASED COUGH ATTEMPTED THIS MORNING WITH SATURATIONS DECREASING INTO THE 70%. MD VERBALIZED UNDERSTANDING, MADE SOME VENT CHANGES PEEP INCREASED TO 10 AND FIO2 DECREASED TO 45% ONLY. MD ALSO ORDERED ANTIBIOTIC CHANGES AND ADDED SOLU-MEDROL. ORDERS WILL BE CARRIED OUT. R.T. WILL BE NOTIFIED OF VENT CHANGES.
--- NOTE | 2020-09-11 12:51 | NUR ---
DISREGARD LAST ENTRY REGARDING TRANSFER TO [facility]
[2020-09-11] MEDS: NOREPINEPHRINE 8 MG/250ML KIT 250 ML IV SCH (13:15)
--- NOTE | 2020-09-11 14:16 | NUR ---
Nutrition Followup Note Wt: 122.7 kg Pt is intubated in [facility] s/p drug overdose continues to be NPO with no new diet order Est energy needs 6575-3139 kcal (11-14 kcal/kg BW 123kg) Est protein needs 68-89g (1-1.3g/kg IBW 68kg) Will monitor and reassess prn. Labs: BUN 58H, Creat 1.59H, Alb 2.4L, BM: pt with 1 BM yesterday per Rn note Skin: BS 10 high risk, full details in continuum of care manager note. PES: Inadequate oral intake r/t current medical condition aeb pt with NPo diet order Altered nutrition related labs r/t chronic medical condition and current medical condition aeb elevated RFTs, hypergylcemia Comments: Continue to monitor npo status, labs, skin. F/u high 2-3 days. Rec: 1) refer pt to OPD on Dc 2) Continue current plan of care. 3) Consider starting pt on alternate nutrition if pt NPO >48hrs. 4) Consider Glucerna 1.2 at a goal rate of 50 ml /hr d/t to CKD no HD
[2020-09-11] MEDS: PANTOPRAZOLE 40 MG/10 ML VIAL INJ IV SCH (14:30)
[2020-09-11] MEDS: FUROSEMIDE 40 MG/4 ML VIAL IV SCH (14:30)
[2020-09-11] MEDS: methylPREDNISolone SOD SUCC 40 MG/ML VL IV SCH ×2 (14:30→22:00)
--- NOTE | 2020-09-11 15:29 | NUR ---
SPOKE WITH DR JUARES NOTIFIED OF MEROPENEM ORDER BY DR BLEVINS AND PATIENT ALLERGIC REACTION OF "HIVES", ACCORDING TO SISTER JIGNESH. STATED OK TO GIVE MEDICATION ORDERED AND CHANGE D5W 40 MEQ POTASSIUM IV TO D5W 20 MEQ POTASSIUM AT ORIGINAL RATE ORDERED BY DR HAYNES AFTER NOTIFYING HIM OF MORNING POTASSIUM LEVEL. ORDERS WILL BE CARRIED OUT.
[2020-09-11] MEDS: MEROPENEM 1GM IVPB 100 ML IV SCH ×2 (17:00→22:00)
[2020-09-11] MEDS ORDERED: D5W/SOD CHL 0.9%/KCL 40MEQ 1,000 ML IV SCH (17:15)
[2020-09-11] MEDS: D5W/ SOD CHL 0.9%/KCL 20MEQ 1,000 ML IV SCH (17:30)
--- NOTE | 2020-09-11 18:50 | NUR ---
Respiratory culture send to lab via bullet system by RT.
--- NOTE | 2020-09-11 19:30 | NUR ---
Opening Shift Note: Neuro: right eye 5 mm fixed, patient is s/p surgical intervention for a retinal detachment per report and patient has an eye patch covering the eye, left eye is 3 mm/brisk/reactive; extremities move with severe weakness with highly stimulated; + cough/gag. Cardio: SB 50s-NSR 90s; SBPs 120s-130s; pulses all palpable; BUE edema +2 pitting. Resp: intubated on 09/06/20 with ET size 8.0/25 @ lip; Vent settings PC rate 14, pressure 22, FiO2 45%, PEEP 10; anterior lung sounds diminished throughout; ET and oral secretions are scant/thick/conner/blood tinged. GI: left nare NGT clamped; active BS; last BM 09/11/20 small soft green/brown. : lane inserted on 09/06/20 for strict I/O; yellow, sediment, cloudy. Skin: intragluteal fissure with sanguinous drainage: 4x4s and optifoam applied; right hand x2 intact blisters ALIZA; hyperpigmentation to bilateral buttocks ALIZA. IV: right IJ TLC inserted on 09/06/20 running Versed @ 14, Fentanyl @ 150; D5W/NS/20 meq potassium @ 50 ml/hr. Patient was transferred to [facility] from telemetry unit on 09/06/20. Pending CXR/CMP/CBC/ABG in AM. Will continue to round, reposition, and perform oral care prn.
[2020-09-11] MEDS: LINEZOLID 600MG/300ML 300 ML IV SCH (19:42)
--- NOTE | 2020-09-11 22:00 | NUR ---
Dr. Lane at bedside.
--- NOTE | 2020-09-11 22:30 | NUR ---
Family called and was updated on plan of care and current patient status. Dr. Lane called family and updated them as well.
[2020-09-12] VITALS (73 sets, daily range): BP systolic 123–156; BP diastolic 39–83
[2020-09-12] MEDS: MIDAZOLAM DRIP 50 mg/50mL 50 ML IV SCH ×4 (00:47→20:32)
[2020-09-12] MEDS: fentaNYL Drip 2500mCg/250mlNS 250 ML IV SCH ×2 (00:51→20:33)
[2020-09-12] MEDS: ALBUTEROL SULF 2.5 MG/0.5ML(0.5%) NEB SOLN NEB SCH ×6 (02:00→19:22)
[2020-09-12 03:24] LABS: Albumin 2.4 g/dL (3.4-5.0); Calcium 8.7 mg/dL (8.5-10.1); Potassium 4.7 mmol/L (3.5-5.1)
[2020-09-12 03:29] LABS: BUN/Creatinine Ratio 34.8; Bilirubin, Total 0.2 mg/dL (0.2-1.0); Total Protein 6.7 g/dL (6.4-8.2)
[2020-09-12 04:12] LABS: Hematocrit 28.1 % (36.0-46.0); Hemoglobin 9.1 g/dL (12.2-16.2); Mean Corpuscular Hemoglobin 32.3 pg (28.0-32.0); Mean Corpuscular Hgb Conc. 32.4 g/dL (32.0-36.0); Mean Corpuscular Volume 99.7 fL (80.0-100.0); Platelet Count (auto) 319 10^3/uL (140-450); Red Blood Cells 2.82 10^6/uL (4.0-5.20); Red Cell Distribution Width 17.8 % (11.8-14.3); White Blood Cell 10.9 10^3/uL (4.4-10.8)
[2020-09-12 04:17] LABS: Basophils % (manual) 0 (0.0-2.0); Blast Cells 0; Promyelocytes % 0; Reactive Lymphocytes 0
[2020-09-12] MEDS: methylPREDNISolone SOD SUCC 40 MG/ML VL IV SCH ×3 (05:53→22:18)
[2020-09-12] MEDS: MEROPENEM 1GM IVPB 100 ML IV SCH ×3 (05:53→22:16)
--- NOTE | 2020-09-12 06:02 | NUR ---
06Patient bathe/linen change Patient given complete CHG bath. Skin integrity assessed for any changes. Linens and gown changed. Patient repositioned for comfort. Optifoam changed on sacrum.
[2020-09-12 06:27] LABS: Band Neutrophils % (manual) 2; Eosinophils % (manual) 1 (0-7); Lymphocytes % (manual) 10 (10.0-50.0); Metamyelocytes % 1; Monocytes % (manual) 2 (0-12); Myelocytes % 4
--- NOTE | 2020-09-12 07:59 | NUR ---
Family updated on pt status Family of PALOMA CLEMENS updated on patient's status and condition after password verification. All questions and concerns addressed. Patient's daughter verbalized understanding. Becca requesting to see her mother and would like to speak with Director, Becca notifjanes of Covid Precautions and state mandate regarding family visits. Will speak with Director Olga and contact Becca back .
[2020-09-12] MEDS: LINEZOLID 600MG/300ML 300 ML IV SCH ×2 (08:05→20:30)
--- NOTE | 2020-09-12 08:52 | NUR ---
SEDATION VACATION/DECREASED HEART RATE WITH TURNS SEDATION DECREASED THIS MORNING PER PROTOCOL FOR MORNING SEDATION VACATION AND PATIENT REPOSITIONED FOR COMFORT/MAINTAIN SKIN INTEGRITY, HEART RATE DECREASED TO 23 - 30's WITHOUT FURTHER INCIDENT, PATIENT INCREASED COUGH OXYGEN SATURATIONS HIGH 70'S, TAKING A FEW MINUTES TO RECUPERATE. MD WILL BE NOTIFIED UPON ROUNDING.
[2020-09-12] MEDS: PANTOPRAZOLE 40 MG/10 ML VIAL INJ IV SCH (10:32)
[2020-09-12] MEDS: FUROSEMIDE 40 MG/4 ML VIAL IV SCH (10:32)
--- NOTE | 2020-09-12 11:45 | NUR ---
REPORT Received report from Olivia GROSSMAN, awaiting for patient to arrive into manager labor relations bed 2. This RN to continue plan of care once patient arrives.
[2020-09-12] MEDS: D5W/ SOD CHL 0.9%/KCL 20MEQ 1,000 ML IV SCH (12:10)
--- NOTE | 2020-09-12 12:50 | NUR ---
PATIENT TRANSFERRED TO [facility]/ICU PATIENT TRANSFERRED FROM [facility]/ICU TO [facility]/ICU FOR CONTINUED CARE. NEXT OF KIN JIGNESH (SISTER) NOTIFIED OF TRANSFER AND DAUGHTER FLAVIO WELL. PATIENT TRANSFERRED VIA GURNEY, ON PORTABLE MONITOR AND VENTILATOR, ACCOMPANIED BY ALLEN, ICU CHARGE NURSE AND Stanislav NO DISTRESS NOTED UPON DEPARTURE, RESPIRATIONS EVEN AND UNLABORED. PATIENT CARE TRANSFERRED TO Jose De Jesus JIMENEZ REPORT PREVIOUSLY GIVEN. Addendum: 09/12/20 at 1312 by Olivia La RN PATIENT PERSONAL BELONGINGS TRANSFERRED WITH PATIENT 1 ANAI BLORAYRAY; 1 PAIR EYE GLASSES BLACK FRAME; 1 WHITE RING BAND AND CELL PHONE WITH BOLT LABELER.
--- NOTE | 2020-09-12 12:50 | NUR ---
RECEIVED PATIENT Received patient into rn cardiac cath bed 2 connected patient to bedside monitor. Patient tolerated transfer.
[2020-09-12] MEDS: NOREPINEPHRINE 8 MG/250ML KIT 250 ML IV SCH (13:15)
--- NOTE | 2020-09-12 15:35 | NUR ---
MD Lux at bedside updated on patient condition with new orders, to input into system.
--- NOTE | 2020-09-12 19:00 | NUR ---
Opening notes Assumed care, on vent and sedation with versed and fentanyl, Central line, NGT and foely catheter in place, SCD's on bilateral lower extremities. Bed in lowest position with side rails up, bed alarm on. Will continue care.
--- NOTE | 2020-09-12 20:05 | NUR ---
Pt's dtr called, updated on pt's status, all questions and concerns were addressed, verbalized understanding.
[2020-09-13] VITALS (35 sets, daily range): BP systolic 107–157; BP diastolic 56–90
[2020-09-13] MEDS: ALBUTEROL SULF 2.5 MG/0.5ML(0.5%) NEB SOLN NEB SCH ×3 (01:02→19:01)
--- NOTE | 2020-09-13 04:00 | NUR ---
Complete bed bath and oral care done, sacral optifoam changed, repositioned for comfort
[2020-09-13 04:26] LABS: Hematocrit 27.2 % (36.0-46.0); Hemoglobin 8.6 g/dL (12.2-16.2); Mean Corpuscular Hemoglobin 31.3 pg (28.0-32.0); Mean Corpuscular Hgb Conc. 31.5 g/dL (32.0-36.0); Mean Corpuscular Volume 99.4 fL (80.0-100.0); Platelet Count (auto) 353 10^3/uL (140-450); Red Blood Cells 2.74 10^6/uL (4.0-5.20); Red Cell Distribution Width 17.5 % (11.8-14.3); White Blood Cell 12.8 10^3/uL (4.4-10.8)
[2020-09-13 04:30] LABS: Basophils % (manual) 0 (0.0-2.0); Blast Cells 0; Eosinophils % (manual) 0 (0-7); Promyelocytes % 0; Reactive Lymphocytes 0
[2020-09-13 04:44] LABS: Potassium 4.9 mmol/L (3.5-5.1)
[2020-09-13 04:51] LABS: Albumin 2.3 g/dL (3.4-5.0); BUN/Creatinine Ratio 38.1; Bilirubin, Total 0.4 mg/dL (0.2-1.0); Calcium 8.4 mg/dL (8.5-10.1); Total Protein 6.6 g/dL (6.4-8.2)
--- NOTE | 2020-09-13 06:05 | NUR ---
Ricardo the hospitalist for critical Hgb 6.1 Addendum: 09/13/20 at 0752 by Eliceo Sequeira RN wrong patient
[2020-09-13 06:29] LABS: Band Neutrophils % (manual) 3; Lymphocytes % (manual) 4 (10.0-50.0); Metamyelocytes % 1; Monocytes % (manual) 3 (0-12); Myelocytes % 1
[2020-09-13] MEDS: MEROPENEM 1GM IVPB 100 ML IV SCH ×3 (07:03→21:34)
[2020-09-13] MEDS: methylPREDNISolone SOD SUCC 40 MG/ML VL IV SCH ×3 (07:04→21:34)
--- NOTE | 2020-09-13 08:25 | NUR ---
RT Aide RT present at bedside for pt and equipment assessment. Pt suctioned PRN at this time via griffiths system. Pt tolerated intervention with no acute changes noted.
[2020-09-13] MEDS: LINEZOLID 600MG/300ML 300 ML IV SCH ×2 (08:30→21:15)
--- NOTE | 2020-09-13 08:37 | NUR ---
RT Aide RT at bedside for ABG. Pt's temp 99.6 F via axillary.
--- NOTE | 2020-09-13 08:49 | NUR ---
Family Becca(Daughter) updated on pt's current condition, and plan of care. Upon rounding family to be contacted for an additional update in care by primary RN.
[2020-09-13] MEDS: D5W/ SOD CHL 0.9%/KCL 20MEQ 1,000 ML IV SCH (08:57)
--- NOTE | 2020-09-13 09:00 | NUR ---
MD Call placed to . updated on pt's current condition, axillary temp of 99.6,lab values and updated CXR clinical impression as of 09/13/20. Received order for additional covid test.
--- NOTE | 2020-09-13 09:29 | NUR ---
LAB Covid swab collected and sent to lab per Dr.Ziprick ch.
[2020-09-13] MEDS: PANTOPRAZOLE 40 MG/10 ML VIAL INJ IV SCH (10:00)
[2020-09-13] MEDS: FUROSEMIDE 40 MG/4 ML VIAL IV SCH (10:00)
[2020-09-13] MEDS: MIDAZOLAM DRIP 50 mg/50mL 50 ML IV SCH ×2 (10:33→18:43)
--- NOTE | 2020-09-13 12:30 | NUR ---
DR. BLEVINS AT BEDSIDE. VENT. CHANGES MADE, DECREASED PRESSURE TO 18, AND DECREASED FIO2 TO 40%.
--- NOTE | 2020-09-13 12:37 | NUR ---
MD Ortiz at bedside updated on pt's current condition. Aide RT present at bedside. Pt pressure control titrated down to 18 and fio2 titrated down to 40% by RT per MD orders.
[2020-09-13] MEDS: NOREPINEPHRINE 8 MG/250ML KIT 250 ML IV SCH (13:15)
--- NOTE | 2020-09-13 15:37 | NUR ---
MD Lux present at bedside for rounding.
[2020-09-13] MEDS ORDERED: Glucerna 1.2 Cal 1Liter BOTTLE GT SCH (15:45)
--- NOTE | 2020-09-13 15:45 | NUR ---
Dietary Spoke with Breann from dietary. After reviewing pt's chart and updated on current status, received recommendation for Glucerna 1.2 with a goal of 50ml/hr enteral feeding. made aware and gave verbal order to start feedings at recommended dose.
--- NOTE | 2020-09-13 15:55 | NUR ---
Nutrition Followup Note Wt: 122.8 kg Pt is intubated, sedated, s/p drug overdose continues to be NPO. Called RN and pt will be started on Glucerna 1.2 @ 10ml/hr, increasing as tolerated to reach 50ml/hr goal rate. Est energy needs 7477-5979 kcal (11-14 kcal/kg BW 123kg) Est protein needs 68-89g (1-1.3g/kg IBW 68kg) Will monitor and reassess prn. Labs: BUN 53H, Creat 1.39H, Alb 2.4L, Gluc 139 H BM: Pt with 1 BM on 09/11 per RN note Skin: BS 11 high risk, full details in sub acute care nurse note. PES: Inadequate oral intake r/t current medical condition aeb pt with NPo diet order Altered nutrition related labs r/t chronic medical condition and current medical condition aeb elevated RFTs, hypergylcemia Comments: Continue to monitor npo status, labs, skin. F/u high 2-3 days. Rec: 1) Refer pt to OPD on Dc 2) Continue current plan of care. 3) Consider starting pt on alternate nutrition if pt NPO >48hrs. 4) Consider Glucerna 1.2 at a goal rate of 50 ml /hr d/t to CKD no HD
--- NOTE | 2020-09-13 18:41 | NUR ---
Dietary Received Glucerna 1.2 from dietary at this time. No feeding pumps available. ICU charge Lucio notified. Awaiting pump arrival.
--- NOTE | 2020-09-13 18:42 | NUR ---
RT RT present at bedside swapping pt to new ventilator. Pt tolerating ventilator with no apparent distress.
--- NOTE | 2020-09-13 19:01 | NUR ---
PT PLACED ON SARAH VENTILATOR FROM [facility] BY RT,VENTILATOR IS PLUGGED INTO RED OUTLET AND O2 CONNECTION IS SECURE. VENT SETTINGS PC18,RR16,PEEP10, 40% FIO2, 0.9 I TIME. PT ETT 8@24 AT THE LIP, ETT ADJUSTED TO ORAL LEFT, PT ETT PATENT, PT BBS REVEAL CLEAR IN THE UPPER AND MID L0BES WITH DIMINISHED AT THE BASES. PT SKIN INTEGRITY INTACT, PT FEELS WARM AND DRY TO TOUCH. RT WILL MONITOR PT AND APPLY APPROPRIATE THERAPY SHOULD CLINICAL OUTLOOK CHANGE.
--- NOTE | 2020-09-13 19:15 | NUR ---
Report Care endorsed to Mirna GROSSMAN.
--- NOTE | 2020-09-13 21:00 | NUR ---
FAMILY RECEIVED PHONE CALL FROM PT'S DAUGHTER. PASSWORD CONFIRMED AND UPDATES GIVEN.
[2020-09-13] MEDS: fentaNYL Drip 2500mCg/250mlNS 250 ML IV SCH (21:22)
[2020-09-14] VITALS (52 sets, daily range): BP systolic 114–165; BP diastolic 58–99
[2020-09-14] MEDS: ALBUTEROL SULF 2.5 MG/0.5ML(0.5%) NEB SOLN NEB SCH ×6 (02:00→22:15)
[2020-09-14] MEDS: D5W/ SOD CHL 0.9%/KCL 20MEQ 1,000 ML IV SCH (04:15)
--- NOTE | 2020-09-14 05:30 | NUR ---
Patient bathe/linen change Patient given complete bath. Skin integrity assessed for any changes. Linens changed. Patient repositioned for comfort.
[2020-09-14] MEDS: methylPREDNISolone SOD SUCC 40 MG/ML VL IV SCH ×3 (05:47→21:36)
[2020-09-14] MEDS: MEROPENEM 1GM IVPB 100 ML IV SCH ×3 (05:47→21:36)
[2020-09-14] MEDS: MIDAZOLAM DRIP 50 mg/50mL 50 ML IV SCH ×2 (05:49→17:00)
[2020-09-14 07:00] LABS: Hematocrit 28.1 % (36.0-46.0); Hemoglobin 9.1 g/dL (12.2-16.2); Mean Corpuscular Hemoglobin 32.1 pg (28.0-32.0); Mean Corpuscular Hgb Conc. 32.5 g/dL (32.0-36.0); Mean Corpuscular Volume 98.9 fL (80.0-100.0); Platelet Count (auto) 407 10^3/uL (140-450); Red Blood Cells 2.85 10^6/uL (4.0-5.20); Red Cell Distribution Width 16.7 % (11.8-14.3); White Blood Cell 13.9 10^3/uL (4.4-10.8)
[2020-09-14 07:11] LABS: Potassium 5.1 mmol/L (3.5-5.1)
[2020-09-14 07:21] LABS: Band Neutrophils % (manual) 0; Basophils % (manual) 0 (0.0-2.0); Blast Cells 0; Eosinophils % (manual) 0 (0-7); Myelocytes % 0; Promyelocytes % 0; Reactive Lymphocytes 0
[2020-09-14 07:23] LABS: Albumin 2.4 g/dL (3.4-5.0); BUN/Creatinine Ratio 38.7; Bilirubin, Total 0.3 mg/dL (0.2-1.0); Calcium 8.6 mg/dL (8.5-10.1); Total Protein 6.7 g/dL (6.4-8.2)
[2020-09-14 08:28] LABS: Lymphocytes % (manual) 7 (10.0-50.0); Metamyelocytes % 2; Monocytes % (manual) 4 (0-12)
[2020-09-14] MEDS: LINEZOLID 600MG/300ML 300 ML IV SCH ×2 (08:30→20:14)
--- NOTE | 2020-09-14 09:12 | NUR ---
FAMILY Becca (daughter) called and was updated on pt's current condition and plan of care. Family had no further questions at this time.
[2020-09-14] MEDS: FUROSEMIDE 40 MG/4 ML VIAL IV SCH (10:01)
[2020-09-14] MEDS: PANTOPRAZOLE 40 MG/10 ML VIAL INJ IV SCH (10:01)
--- NOTE | 2020-09-14 12:00 | NUR ---
Feeding Feeding paused and residual aspirated. 20ml noted. Feeding resumed with no complications.
[2020-09-14] MEDS: NOREPINEPHRINE 8 MG/250ML KIT 250 ML IV SCH (12:55)
--- NOTE | 2020-09-14 13:02 | NUR ---
MD Ortiz at bedside and was updated on pt's trending condition. New plan of care to titrate down on PEEP was discussed. RT paged at that time.
--- NOTE | 2020-09-14 13:50 | NUR ---
MD Thomas at bedside assessing pt. updated on pt's current and trending condition. Pt responded to name and followed commands upon assessment. No new orders received at this time.
--- NOTE | 2020-09-14 13:55 | NUR ---
RT Sonya RT at bedside initiating inline treatment. Pt reassessed by RT s/p titration down on PEEP to 8.Pt continues to tolerate new settings with no complications.
--- NOTE | 2020-09-14 16:00 | NUR ---
Feeding Feeding paused and residual aspirated. 10ml noted. Feeding resumed with no complications.
--- NOTE | 2020-09-14 18:24 | NUR ---
WOUND CARE NOTE: PATIENT BEING MONITORED FOR SKIN INTEGRITY D/T INTUBATION STATUS. PATIENT HAS CURRENT ANNELIESE SCORE OF 11. SHE REMAINS INTUBATED, SEDATED, ICU STATUS IN ICU-CL2. SKIN/WOUND CARE PLAN UPDATED. PATIENT REMAINS WOUND FREE AT THIS TIME. RECOMMEND: CONTINUATION WITH ALL WOUND CARE ORDERS PREVIOUSLY PRESCRIBED BY MD. WOUND CARE TEAM WILL CONTINUE TO MONITOR.
--- NOTE | 2020-09-14 18:49 | NUR ---
RT Sharif RT at bedside for ventilator and pt assessment. RT updated on plan of care that was earlier discussed with Dr. Casey regarding titrating down the PEEP. An in-line med-neb treatment initiated by RT at this time.
--- NOTE | 2020-09-14 19:09 | NUR ---
Shift Report Care endorsed to Mirna GROSSMAN.
--- NOTE | 2020-09-14 20:30 | NUR ---
Patient bathe/linen change Patient given complete bath. Skin integrity assessed for any changes. Linens changed. Patient repositioned for comfort.
[2020-09-14] MEDS: fentaNYL Drip 2500mCg/250mlNS 250 ML IV SCH (21:10)
[2020-09-15] VITALS (44 sets, daily range): BP systolic 130–172; BP diastolic 57–100
[2020-09-15] MEDS: D5W/ SOD CHL 0.9%/KCL 20MEQ 1,000 ML IV SCH ×2 (00:30→20:34)
[2020-09-15] MEDS: ALBUTEROL SULF 2.5 MG/0.5ML(0.5%) NEB SOLN NEB SCH ×2 (02:00→19:35)
[2020-09-15] MEDS: MIDAZOLAM DRIP 50 mg/50mL 50 ML IV SCH ×2 (02:53→20:40)
--- NOTE | 2020-09-15 03:00 | NUR ---
Central Line Dressing Changes Central line dressing change done with a sterile technique. Cleansed with chloraprep scrub/betadine. bio-patch applied. Occlusive dressing applied.
[2020-09-15] MEDS: MEROPENEM 1GM IVPB 100 ML IV SCH ×3 (05:55→22:44)
[2020-09-15] MEDS: methylPREDNISolone SOD SUCC 40 MG/ML VL IV SCH ×3 (05:55→22:44)
--- NOTE | 2020-09-15 07:00 | NUR ---
Report from Mirna RN Patient intubated, sedated on Versed 5 mg, Fentanyl 100 mcg. Settings PC 16/18, PEEP 5, ETT 8.0 24". NEURO: moves all extremities, afebrile, follows simple commands CARDIAC: NS- indira, HR 56 BP 133/69, generalized edema RESP: diminished lung sounds SPO2 98% GI: tube feeding 30 ml/hr : lane 975 ml out put Will continue to monitor
--- NOTE | 2020-09-15 07:45 | NUR ---
Daughter Becca RN spoke with daughter who called for update. Updated on status and plan of care. She is waiting for Dr. Delcid to call them regarding options if patient is unable to wean from vent.
[2020-09-15] MEDS: LINEZOLID 600MG/300ML 300 ML IV SCH ×2 (08:58→20:33)
--- NOTE | 2020-09-15 10:05 | NUR ---
RN bedside Oral care, repositioning.
--- NOTE | 2020-09-15 12:10 | NUR ---
RN bedside Oral care, hygiene, patient repositioned.
[2020-09-15] MEDS: NOREPINEPHRINE 8 MG/250ML KIT 250 ML IV SCH (13:15)
--- NOTE | 2020-09-15 13:30 | NUR ---
Large BM Patient had large liquid bowel movement. Gerry bed bath with z guard applied.
--- NOTE | 2020-09-15 14:00 | NUR ---
Extubated Patient extubated. Put on face mask with humidified oxygen, SPO2 97% RR 14, calm in no signs of distress. Anterior lung sounds wheezing. Will continue to monitor.
[2020-09-15] MEDS: FUROSEMIDE 40 MG/4 ML VIAL IV SCH (14:53)
[2020-09-15] MEDS: PANTOPRAZOLE 40 MG/10 ML VIAL INJ IV SCH (14:54)
--- NOTE | 2020-09-15 15:10 | NUR ---
RN bedside Patient in no signs of respiratory distress, normal breathing pattern with little/no secretions.
[2020-09-16] VITALS (8 sets, daily range): BP systolic 124–151; BP diastolic 69–90
[2020-09-16] MEDS: ALBUTEROL SULF 2.5 MG/0.5ML(0.5%) NEB SOLN NEB SCH ×7 (02:08→23:52)
--- NOTE | 2020-09-16 02:19 | NUR ---
Respiratory note: PT TAKE OFF COOL AEROSOL AND PLACED ON 4L OXYMIZER. PT TOLERATING WELL-SPO2 100%. RN AWARE. WILL CONTINUE TO MONITOR PT.
[2020-09-16] MEDS: fentaNYL Drip 2500mCg/250mlNS 250 ML IV SCH (03:15)
[2020-09-16] MEDS ORDERED: methylPREDNISolone SOD SUCC 125 MG/2 ML VL ONE (04:04)
[2020-09-16] MEDS: MEROPENEM 1GM IVPB 100 ML IV SCH ×3 (05:57→22:00)
[2020-09-16] MEDS: methylPREDNISolone SOD SUCC 40 MG/ML VL IV SCH ×3 (05:57→22:00)
--- NOTE | 2020-09-16 07:30 | NUR ---
Opening Shift Note Assumed care of patient, awake and alert. No S/S of distress/SOB or pain. See interventions for complete assessment. Bed locked on low position, side rails up x2, bed alarms on at all times, call silverman within reach, instructed on POC and to call for assist PRN, will continue to monitor for changes Q1hr and PRN.
[2020-09-16] MEDS: LINEZOLID 600MG/300ML 300 ML IV SCH ×2 (07:36→21:00)
--- NOTE | 2020-09-16 08:17 | NUR ---
Dr Lane at bedside, updated on patient's status. Patient seen and examined. No new orders at at this time.
--- NOTE | 2020-09-16 08:30 | NUR ---
Patient had small amount of watery brown stool. Perineal care rendered. Skin integrity assessed for any changes. Skin tear noted on jaqueline anal area, z guard applied. Linens changed. Patient repositioned for comfort.
--- NOTE | 2020-09-16 09:20 | NUR ---
Received call from patient's daughter Becca who's able to provide password. Updated on patient's status and POC, verbalized understanding. All questions and concerns addressed.
[2020-09-16] MEDS: FUROSEMIDE 40 MG/4 ML VIAL IV SCH (10:08)
[2020-09-16] MEDS: PANTOPRAZOLE 40 MG/10 ML VIAL INJ IV SCH (10:11)
--- NOTE | 2020-09-16 10:59 | NUR ---
Dr Banuelos at bedside, updated on patient's status. Patient seen and examined. Received order for swallow eval, PT consult and Tele downgrade. Read back and verified. Will carry out.
--- NOTE | 2020-09-16 13:00 | NUR ---
PALOMA CLEMENS transfered to Tele floor via hospital bed on bakery chef and portable 02. All patient medications and personal belongings including clothes transfered with patient to receiving floor. Patient care transferred to Kristi GROSSMAN.
--- NOTE | 2020-09-16 13:00 | NUR ---
WOUND CARE NOTE: IN TO SEE PATIENT FOR SKIN INTEGRITY CONCERN. PATIENT IN CL-ICU2. SHE IS ABOUT TO BE TRANSFERRED TO TELE FLOOR. PATIENT HAS CURRENT ANNELIESE SCORE OF 13. SHE IS ABLE TO ASSIST WITH HER TURNING/REPOSITIONING. SHE HAS HAD MULTIPLE BOUTS WITH INCONTINENT LOOSE STOOL, RENDERING HER WITH MASD. SHE HAS SOME PARTIAL THICKNESS SKIN EROSION TO INTRAGLUTEAL/PERIANAL SKIN AREAS. NEW WOUND PHOTO TAKEN AT THIS TIME FOR REFERENCE. APPLIED ZGUARD, OPTIFOAM GENTLE SACRAL DRESSING TO SKIN. RECOMMEND: FREQUENT PERICARE NEEDED; CONTINUATION WITH ALL WOUND CARE ORDERS PREVIOUSLY PRESCRIBED BY MD. WOUND CARE TEAM WILL CONTINUE TO MONITOR. Addendum: 09/16/20 at 1536 by Capri Wolf RN Amended: Links added.
--- NOTE | 2020-09-16 13:15 | NUR ---
lye treater Meg at bedside.
--- NOTE | 2020-09-16 14:24 | NUR ---
Nutrition Followup Note Wt: 116.4 kg Pt`s extubated sleeping with no family by bedside. pt continues to be NPO and awaiting ST eval per RN. Est energy needs 0220-0753 kcal (11-14 kcal/kg BW 123kg), Est protein needs 68-89g (1-1.3g/kg IBW 68kg). Will monitor and reassess prn. Labs: GLU 120 H BUN 46 H CREAT 1.19 H ALB 2.4 L BM: Pt with 1 BM today per RN note Skin: BS 15 mod risk, full details in daycare worker note. PES: Inadequate oral intake r/t current medical condition aeb pt with NPo diet order Altered nutrition related labs r/t chronic medical condition and current medical condition aeb elevated RFTs, hypergylcemia Comments: Continue to monitor npo status, labs, skin. F/u high 2-3 days. Rec: 1) Refer pt to OPD on Dc 2) Continue current plan of care. 3) resume EN support with Glucerna 1.2 at a goal rate of 50 ml /hr d/t to CKD if pt fails ST eval 4) advance diet as medically feasible
--- NOTE | 2020-09-16 15:26 | NUR ---
SWALLOW EVALUATED. PATIENT HAS NATURAL TEETH. PATIENT ALERT AND ABLE TO FOLLOW COMMANDS. PATIENT ABLE TO TOLERATE MECHANICAL SOFT DIET TEXTURE WITH THIN LIQUIDS WITH NO OVERT SIGNS OR SYMPTOMS OF ASPIRATION. NURSING NOTIFIED.
[2020-09-16] MEDS: D5W/ SOD CHL 0.9%/KCL 20MEQ 1,000 ML IV SCH (17:15)
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
[2020-09-17] MEDS: ALBUTEROL SULF 2.5 MG/0.5ML(0.5%) NEB SOLN NEB SCH ×4 (02:00→22:00)
[2020-09-17 04:34] VITALS: BP 128/59
[2020-09-17] MEDS: MEROPENEM 1GM IVPB 100 ML IV SCH ×3 (05:51→23:10)
[2020-09-17] MEDS: methylPREDNISolone SOD SUCC 40 MG/ML VL IV SCH ×3 (05:55→23:10)
--- NOTE | 2020-09-17 06:24 | NUR ---
Pt awake. Voice stronger. Pt states she is feeling stronger. Pt telling this RN that she believes she took the pill purposefully, "I just wanted it to be over. I was so tired. It's been so hard!" Nurse clarified with pt that she is truly believing she did this purposefully. Pt stated again, "Yes," then states she was not sure.
--- NOTE | 2020-09-17 07:30 | NUR ---
OPENING SHIFT NOTE Assumed care of patient from c 13 catapult operator RN. She is alert and oriented x4, no signs of distress noted, denies pain. She was updated on the plan of care and verbalized understanding. She is on 2L/min via nasal cannula, saturation 94%. Patient stating "I cannot believe my did this, he is too good of a man, so I must have done this to myself but I don't remember. " Bed is locked, in the lowest position, side rails up x2 and call light is in reach. She was encouraged to call for assistance as needed.
[2020-09-17] MEDS: LINEZOLID 600MG/300ML 300 ML IV SCH ×2 (08:04→20:04)
--- NOTE | 2020-09-17 08:20 | NUR ---
Respiratory note: RECEIVED PATIENT ON 2L NC. ADMINISTERED NEBS. PATIENT TOLERATED WELL. WILL CONTINUE TO MONITOR.
[2020-09-17 09:00] VITALS: BP 153/76
--- NOTE | 2020-09-17 09:05 | NUR ---
CALL FROM FAMILY call from daughter Becca, . After verification of password she was updated on the plan of care and verbalized understanding. All questions answered.
[2020-09-17] MEDS: FUROSEMIDE 40 MG/4 ML VIAL IV SCH (09:33)
[2020-09-17] MEDS: PANTOPRAZOLE 40 MG/10 ML VIAL INJ IV SCH (09:33)
--- NOTE | 2020-09-17 09:58 | NUR ---
MOR AT BEDSIDE Updated on the plan of care and plan of care was discussed with the patient and she verbalized understanding. New orders for IS at bedside, CBC and BMP tomorrow AM , Boost TIDWM, and full liquid diet. Orders read back and verified.
--- NOTE | 2020-09-17 11:17 | NUR ---
CALLED FAMILY called Becca, After verification of password she was updated on the plan of care and verbalized understanding. All questions answered.
--- NOTE | 2020-09-17 11:38 | NUR ---
FELICITY AT BEDSIDE updated on the patient status. Plan of care was discussed with the patient and she verbalized understanding. Per MD patient should be discharged as soon as possible.
[2020-09-17 12:11] VITALS: BP 125/66
[2020-09-17] MEDS: Glucerna Carbsteady SHAKE Vanilla 8oz PO SCH ×2 (13:15→18:00)
[2020-09-17] MEDS: D5W/ SOD CHL 0.9%/KCL 20MEQ 1,000 ML IV SCH (13:15)
--- NOTE | 2020-09-17 15:36 | NUR ---
PICC DRESSING CHANGE Per protocol, patient tolerated well.
[2020-09-17 17:00] VITALS: BP 134/78
[2020-09-18] MEDS: ALBUTEROL SULF 2.5 MG/0.5ML(0.5%) NEB SOLN NEB SCH ×6 (02:00→22:30)
--- NOTE | 2020-09-18 06:00 | NUR ---
Respiratory note: PT SEEN AT THIS TIME, NO RESP DISTRESS NOTED. HR 91, RR 18, SPO2 98% ON 2L N/C. PT REFUSED TX AT THIS TIME. PT STATED SHE WAS IN A LOT OF PAIN AND DID NOT NEED MED NEB.
[2020-09-18] MEDS: MEROPENEM 1GM IVPB 100 ML IV SCH ×3 (06:03→22:24)
[2020-09-18] MEDS: methylPREDNISolone SOD SUCC 40 MG/ML VL IV SCH ×3 (06:03→22:24)
--- NOTE | 2020-09-18 06:16 | NUR ---
Pt increasingly anxious and unable to explain how she feels "all over...my arms and my legs." Reminded pt of controlled breathing and thoughts of peaceful situations/scenes/expressions. Pt attempting this, but freq. not successful. Discussed with pt poss of SE of solu medrol causing jitteriness freq associated with steroids. Pt considering this to be possible. Will endorse to day shift.
[2020-09-18] MEDS ORDERED: HYDROcodone-ACET 5/325MG TAB PO ONE (06:30)
--- NOTE | 2020-09-18 06:30 | NUR ---
Ricardo Ruiz, RN, PSYCHIC READER, hospitalist for medication for pt's pain; returned page within 5 minutes. Received one time order for [place] 5 i po x1.
[2020-09-18 08:30] LABS: Calcium 8.7 mg/dL (8.5-10.1); Potassium 4.4 mmol/L (3.5-5.1)
[2020-09-18] MEDS: LINEZOLID 600MG/300ML 300 ML IV SCH ×2 (08:30→19:48)
[2020-09-18] MEDS: Glucerna Carbsteady SHAKE Vanilla 8oz PO SCH ×3 (08:31→19:52)
[2020-09-18 08:35] LABS: Basophils # (auto) 0 10 ^3/uL (0-0.2); Basophils % (auto) 0.2 % (0.0-2.0); Eosinophils # (auto) 0 10 ^3/uL (0-0.8); Hematocrit 33.1 % (36.0-46.0); Hemoglobin 10.6 g/dL (12.2-16.2); Lymphocytes # (auto) 0.8 10 ^3/uL (0.4-5.4); Lymphocytes % (auto) 6.4 % (10.0-50.0); Mean Corpuscular Hemoglobin 30.8 pg (28.0-32.0); Mean Corpuscular Volume 96.5 fL (80.0-100.0); Monocytes # (auto) 0.5 10 ^3/uL (0-1.3); Neutrophils # (auto) 11.1 10 ^3/uL (1.6-8.6); Neutrophils % (auto) 89.4 % (37.0-80.0); Platelet Count (auto) 450 10^3/uL (140-450); Red Blood Cells 3.43 10^6/uL (4.0-5.20); Red Cell Distribution Width 15.9 % (11.8-14.3); White Blood Cell 12.4 10^3/uL (4.4-10.8)
[2020-09-18 09:00] VITALS: BP 152/84
[2020-09-18] MEDS: PANTOPRAZOLE 40 MG/10 ML VIAL INJ IV SCH (10:00)
[2020-09-18] MEDS: FUROSEMIDE 40 MG/4 ML VIAL IV SCH (10:19)
--- NOTE | 2020-09-18 11:09 | NUR ---
Nutrition Followup Note Wt: 116.0 kg Pt`s extubated sleeping with no family by bedside. Pt diet advanced to a Full Liquid diet, appetite is poor aeb ave <25% x4 PO intake. Est energy needs 6912-0128 kcal (11-14 kcal/kg BW 123kg), Est protein needs 68-89g (1-1.3g/kg IBW 68kg). Will monitor and reassess prn. Labs: GLU 127 H BUN 30 H ALB 2.4 L BM: Pt with 1 BM on 09/17 per RN note Skin: BS 13 mod risk, full details in director of home care hospice note. PES: 1) Inadequate oral intake r/t current medical condition aeb pt with NPO diet order 2) Altered nutrition related labs r/t chronic medical condition and current medical condition aeb elevated RFTs, hypergylcemia Comments: Continue to monitor NPO status, labs, skin. F/u high 3-5 days. Rec: 1) Refer pt to OPD on D/C 2) Continue current plan of care. 3) Resume EN support with Glucerna 1.2 at a goal rate of 50 ml /hr d/t to CKD if pt fails ST eval 4) Advance diet as medically feasible
[2020-09-18 13:00] VITALS: BP 113/64
[2020-09-18 17:03] VITALS: BP 140/76
[2020-09-18 22:00] VITALS: BP 112/73
[2020-09-19] MEDS: ALBUTEROL SULF 2.5 MG/0.5ML(0.5%) NEB SOLN NEB SCH ×4 (01:22→23:50)
[2020-09-19 05:00] VITALS: BP 130/79
--- NOTE | 2020-09-19 05:00 | NUR ---
TELE PSYC ESTUARDO PRINTED AND PUT IN CHART.
[2020-09-19] MEDS: MEROPENEM 1GM IVPB 100 ML IV SCH ×3 (05:06→22:04)
[2020-09-19] MEDS: methylPREDNISolone SOD SUCC 40 MG/ML VL IV SCH ×3 (05:06→22:04)
[2020-09-19] MEDS: KETOROLAC TROMETH 30 MG/ML 1ML VIAL IV PRN ×2 (05:07→20:39)
[2020-09-19] MEDS: LINEZOLID 600MG/300ML 300 ML IV SCH ×2 (08:02→20:33)
[2020-09-19] MEDS: Glucerna Carbsteady SHAKE Vanilla 8oz PO SCH ×3 (08:02→19:00)
[2020-09-19 09:00] VITALS: BP 159/69
[2020-09-19] MEDS ORDERED: DULoxetine HCL 30 MG CAP PO SCH ×2 (10:00)
[2020-09-19] MEDS ORDERED: busPIRone HCL 10 MG TAB PO SCH (10:00)
[2020-09-19] MEDS ORDERED: LORazepam 2MG/ML-1ML VIAL IV PRN ×2 (10:00)
[2020-09-19] MEDS: PANTOPRAZOLE 40 MG/10 ML VIAL INJ IV SCH (10:08)
[2020-09-19] MEDS: busPIRone HCL 10 MG TAB PO SCH ×2 (10:09→22:03)
[2020-09-19] MEDS: FUROSEMIDE 40 MG/4 ML VIAL IV SCH (10:11)
--- NOTE | 2020-09-19 11:00 | NUR ---
PATIENT'S DAUGHTER PHONED AND WANTED TO TALK TO MD FOR UPDATE. SHE WAS ALREADY GIVEN UPDATE REGGIE BUT WANTED EITHER THE PSYCHIATRIST OR HOSPITALIST TO TALK TO HER. DR. Andrea MCDANIELS TALKED TO HER ON THE PHONE AND UPDATED HER ON PATIENT'S CONDITION AND PLAN OF CARE.
[2020-09-19] MEDS: DULoxetine HCL 30 MG CAP PO SCH (11:14)
[2020-09-19 13:00] VITALS: BP 132/79
[2020-09-19 17:00] VITALS: BP 154/69
--- NOTE | 2020-09-19 18:50 | NUR ---
Lane catheter dc'd Order to discontinue lane catheter. Lane dc'd with clean technique following deflation of balloon. Patient tolerated well with no complaints of pain. Continue care.
[2020-09-19 22:00] VITALS: BP 135/75
[2020-09-19] MEDS: traZODone HCL 50 MG TAB PO SCH ×2 (22:00→22:03)
[2020-09-19] MEDS ORDERED: MELATONIN 10 MG PO SCH (22:00)
[2020-09-19] MEDS: MELATONIN 10 MG TABLET PO SCH (22:00)
--- NOTE | 2020-09-19 22:30 | NUR ---
patient voided 400 urine output. and had bm.
[2020-09-20] MEDS: ALBUTEROL SULF 2.5 MG/0.5ML(0.5%) NEB SOLN NEB SCH ×5 (02:00→22:00)
[2020-09-20] MEDS: methylPREDNISolone SOD SUCC 40 MG/ML VL IV SCH (05:11)
[2020-09-20] MEDS: KETOROLAC TROMETH 30 MG/ML 1ML VIAL IV PRN (05:11)
[2020-09-20] MEDS: MEROPENEM 1GM IVPB 100 ML IV SCH (05:11)
--- NOTE | 2020-09-20 05:33 | NUR ---
PATIENT REFUSED FULL BED LINEN CHANGE THIS MORNING. REQUESTED TO BE CHANGED LATER. WILL ENDORSE TO SURGERY TEACHER.
--- NOTE | 2020-09-20 07:30 | NUR ---
Opening Shift Note: Assumed care of patient, awake and alert. No S/S of distress/SOB or pain. Patient states "I feel much better today than I did yesterday." Bed in lowest locked position, side rails up x 2, call light within reach. Patient instructed on POC and to call for assist PRN, will continue to monitor for changes Q1hr and PRN.
[2020-09-20] MEDS: LINEZOLID 600MG/300ML 300 ML IV SCH (08:20)
[2020-09-20] MEDS: Glucerna Carbsteady SHAKE Vanilla 8oz PO SCH ×3 (08:20→17:44)
--- NOTE | 2020-09-20 08:28 | NUR ---
DR RAINEY: Dr. Harvey at bedside. Discussed POC with patient.
--- NOTE | 2020-09-20 08:43 | NUR ---
AUTOMOTIVE CONSULTANT CATALYST UNIT OPERATOR PAGED AT THIS TIME. Addendum: 09/20/20 at 0850 by CORIE GREENE RN RN SPOKE WITH AUTOMOTIVE CONSULTANT CATALYST UNIT OPERATOR. Addendum: 09/21/20 at 0818 by CORIE GREENE RN RN SPOKE WITH HAMMAD
[2020-09-20 09:00] VITALS: BP 145/55
--- NOTE | 2020-09-20 09:00 | NUR ---
INFORMED CHARGE NURSE AMANDA OF NEED FOR 5150 PER MATCHBOOK MAKER HOUSE SUP WILL BE NOTIFIED.
[2020-09-20] MEDS: predniSONE 20 MG TAB PO SCH (09:47)
[2020-09-20] MEDS: busPIRone HCL 10 MG TAB PO SCH ×2 (09:48→22:35)
[2020-09-20] MEDS: DULoxetine HCL 30 MG CAP PO SCH (09:48)
[2020-09-20] MEDS: FUROSEMIDE 20 MG TAB PO SCH (09:48)
--- NOTE | 2020-09-20 12:31 | NUR ---
IV insertion: IV access obtained, via clean sterile technique by inserting 22 gauge catheter at left hand after 1 attempt. IV secured properly. No trauma to site. Patient tolerated well.
[2020-09-20 13:00] VITALS: BP_SYST 128; BP_SYST 134; BP_DIAS 70; BP_DIAS 78
[2020-09-20 17:00] VITALS: BP 134/95
--- NOTE | 2020-09-20 17:15 | NUR ---
IV removal: Right IJ IV DC'd with clean sterile technique, catheter fully intact. Pressure dressing applied to site. Patient tolerated well.
--- NOTE | 2020-09-20 18:30 | NUR ---
PATIENT STILL PENDING 1516
--- NOTE | 2020-09-20 18:48 | NUR ---
CLOSING NOTE: Patient resting in bed. No S/S of distress. Call light within reach.
--- NOTE | 2020-09-20 21:57 | NUR ---
Up to BSC with assist x2 then back to bed after approx. 120ml urine + soft, unformed brown stool. Assisted back to bed by two; dangling at bedside per pt's desire. O2 per n/c @ 2lpm as RR increased.
[2020-09-20 22:00] VITALS: BP 136/74
[2020-09-20] MEDS: MELATONIN 10 MG TABLET PO SCH (22:00)
[2020-09-20] MEDS: traZODone HCL 50 MG TAB PO SCH ×2 (22:00→22:31)
--- NOTE | 2020-09-21 00:18 | NUR ---
Pt c/o indigestion; paged hospitalist.
--- NOTE | 2020-09-21 00:48 | NUR ---
Paged hospitalist as no answer.
[2020-09-21] MEDS: ALBUTEROL SULF 2.5 MG/0.5ML(0.5%) NEB SOLN NEB SCH ×5 (02:55→14:42)
[2020-09-21 05:00] VITALS: BP 115/51
--- NOTE | 2020-09-21 07:30 | NUR ---
Opening Shift Note: Assumed care of patient, awake and alert. No S/S of distress/SOB or pain. Bed in lowest locked position, side rials up x 2, call light within reach. Patient instructed on POC and to call for assist PRN, will continue to monitor for changes Q1hr and PRN.
[2020-09-21 08:37] VITALS: BP 138/65
[2020-09-21] MEDS: Glucerna Carbsteady SHAKE Vanilla 8oz PO SCH ×3 (08:54→17:34)
[2020-09-21] MEDS: predniSONE 20 MG TAB PO SCH (08:54)
[2020-09-21] MEDS: busPIRone HCL 10 MG TAB PO SCH ×2 (08:55→21:34)
[2020-09-21] MEDS: FUROSEMIDE 20 MG TAB PO SCH (08:55)
[2020-09-21] MEDS: DULoxetine HCL 30 MG CAP PO SCH (08:55)
[2020-09-21] MEDS: KETOROLAC TROMETH 30 MG/ML 1ML VIAL IV PRN ×2 (08:56→15:56)
--- NOTE | 2020-09-21 09:02 | NUR ---
SPOKE WITH IMMIGRATION SPECIALIST NORMA AT THIS TIME REGARDING PENDING [id number].
--- NOTE | 2020-09-21 09:21 | NUR ---
UNABLE TO GIVE THE 0600 [place] . THERAPIST UNAVAILABLE. UPON ARRIVING TO PT'S DESIREE, PT WAS ON RA, O2 SAT OF 94%, HR 84 BPM, R19 BPM. NO SOB OR A [place] OTHER ACUTE RESPIRATORY DISTRESS. WILL RESUME SCHEDULED [place].
[2020-09-21] MEDS: PANTOPRAZOLE 40 MG TAB PO SCH (10:08)
[2020-09-21 12:08] VITALS: BP 121/67
--- NOTE | 2020-09-21 12:34 | NUR ---
PAGED CLINICAL DOCUMENT IMPROVEMENT EDUCATOR BIRD SITTER AT THIS TIME. RECEIVED CALL FROM HAI. INFORMED HER THAT NO 5150 IS WRITTEN NO RN AVAILABLE TO WRITE ONE.
--- NOTE | 2020-09-21 12:43 | NUR ---
Nutrition Followup Note Wt: 109.1 kg Pt asleep with no family at bedside. Pt is a 5150 awaiting transfer to [facility] facility. Pt is with afull liquid diet with 50-75% po intake x 2 days per RN note, pt with Glucerna 1 carton TID. Continue to advance diet as medically feasible Est energy needs 2704-4641 kcal (11-14 kcal/kg BW 123kg), Est protein needs 68-89g (1-1.3g/kg IBW 68kg). Will monitor and reassess prn. Labs: BUN 30H, GLUC 127H, Alb 2.4L BM: Pt with 1 BM on 09/21 per RN note Skin: BS 15 mod risk, full details in director of health care marketing note. PES: resolved: 1) Inadequate oral intake r/t current medical condition aeb pt with NPO diet order 2) Altered nutrition related labs r/t chronic medical condition and current medical condition aeb elevated RFTs, hypergylcemia Comments: Continue to monitor po intake, labs, skin. F/u mod 3-5 days. Rec: 1) Refer pt to [facility] on D/C 2) Continue current plan of care. 3) continue to advance diet as medically feasible 4) pt po intake >75%
--- NOTE | 2020-09-21 13:04 | NUR ---
FAXED TELE PSYCH REPORT TO [facility].
--- NOTE | 2020-09-21 13:15 | NUR ---
1315 09/21/20 - [facility] at [phone] spoke with inbound call center representative who stated patient can only be transferred to an inpatient psy facility two ways if patient voluntarily agrees or patient on a documented 5150 HOLD. Currently 5150 HOLD is pending. Will proceed with pending transfer once written 5150 completed and available.
[2020-09-21 17:16] VITALS: BP 121/72
--- NOTE | 2020-09-21 17:49 | NUR ---
SPOKE WITH RADIATION CONTROL WORKER NORMA REGARDING PENDING 5150. AWAITING RN WHO IS ABLE TO WRITE 5150.
--- NOTE | 2020-09-21 18:23 | NUR ---
PAGED LEATHER CARVER HOSPITALIST AT THIS TIME REGARDING REPEAT TELE PSYCH.
--- NOTE | 2020-09-21 18:30 | NUR ---
SPOKE WITH DR. OREILLY. ORDERS TO REPEAT TELE PSYCH.
--- NOTE | 2020-09-21 18:48 | NUR ---
CLOSING NOTE: PATIENT RESTING IN BED. NO S/S OF DISTRESS. TELE PSYCH COMPUTER IN ROOM. WILL ENDORSE TO FIDELIA GROSSMAN.
--- NOTE | 2020-09-21 19:10 | NUR ---
TELE PSYCH CONSULT PLACED, TELE MED REQUEST SENT NOC RN AWARE
--- NOTE | 2020-09-21 20:00 | NUR ---
Opening Shift Note Assumed care of patient, awake and alert. No S/S of distress/SOB or pain. Instructed on POC and to call for assist PRN, will continue to monitor for changes Q1hr and PRN.Patient verbalized that she will not try to hurt herself.
[2020-09-21] MEDS: MELATONIN 10 MG TABLET PO SCH (21:35)
[2020-09-21] MEDS: traZODone HCL 50 MG TAB PO SCH (21:35)
[2020-09-21 22:00] VITALS: BP 134/69
[2020-09-22 05:00] VITALS: BP 102/44
[2020-09-22] MEDS: ALBUTEROL SULF 2.5 MG/0.5ML(0.5%) NEB SOLN NEB SCH ×3 (06:00→14:00)
--- NOTE | 2020-09-22 07:00 | NUR ---
OPENING SHIFT NOTE Assumed care of patient from food assembler kitchen RN. Patient is alert and oriented x4, no signs of distress noted, patient complaining of a headache 03/12 requesting tylenol will medicate as ordered patient reporting of "a little shortness of breath" and was encouraged to wear her oxygen but refused stating "if I need it I will put it on". She was updated on the plan of care and verbalized understanding. Bed is locked, in the lowest position, side rails are up x3 and call light is in reach. She was encouraged to call for assistance as needed.
--- NOTE | 2020-09-22 07:14 | NUR ---
Report given to Spencer Schuster, patient is resting no distress.
[2020-09-22] MEDS: Glucerna Carbsteady SHAKE Vanilla 8oz PO SCH ×2 (08:03→12:56)
[2020-09-22] MEDS: ACETAMINOPHEN 325 MG TAB PO PRN (08:14)
--- NOTE | 2020-09-22 08:41 | NUR ---
CALL FROM FAMILY call from daughter Becca. After verification of password she was updated on the plan of care and verbalized understanding. All questions answered.
[2020-09-22 08:49] VITALS: BP 115/59
--- NOTE | 2020-09-22 09:40 | NUR ---
MOR AT BEDSIDE updated on the patient status, plan of care was discussed with the patient and she verbalized understanding. No new orders received.
[2020-09-22] MEDS: busPIRone HCL 10 MG TAB PO SCH (10:04)
[2020-09-22] MEDS: predniSONE 20 MG TAB PO SCH (10:04)
[2020-09-22] MEDS: FUROSEMIDE 20 MG TAB PO SCH (10:05)
[2020-09-22] MEDS: DULoxetine HCL 30 MG CAP PO SCH (10:05)
[2020-09-22] MEDS: PANTOPRAZOLE 40 MG TAB PO SCH (10:05)
[2020-09-22 13:00] VITALS: BP 118/69
--- NOTE | 2020-09-22 13:37 | NUR ---
WOUND PICTURES TAKEN FOR DC PROTOCOL FORM COMPLETED
--- NOTE | 2020-09-22 15:01 | NUR ---
CALL FROM FAMILY call from daughter Becca. After verification of password she was updated on the plan of care and verbalized understanding. All questions answered.
[2020-09-22 16:59] VITALS: BP 126/62
--- NOTE | 2020-09-22 17:40 | NUR ---
DISCHARGE Discharge instructions given as ordered. Encourage to follow up with PMD as instructed. All questions and concerns addressed. Patient verbalized understanding. Medication reconciliation form completed and copy given to patient. IV removed with catheter intact, pressure dressing applied, Telemetry unit returned to ICU. Patient taken to vehicle via wheelchair with all personal belongings, accompanied by staff. No signs of distress noted on departure.
--- NOTE | 2020-09-23 11:58 | NUR ---
0956 09/23/20 - Faxed to Dr Miriam Anderson at [phone] face sheet, order for home health for physical therapy, H/P, discharge summary. Contacted Dr Miriam Anderson office at [phone] spoke with commercial loan specialist who confirmed receiving all faxed documents. Per commercial loan specialist order will be processed and patient will be contacted with home health information.
== END 2020-09-22 17:53 | disposition home or self-care (01) | DRG 917 ==
LOC: ER 11:01 → EDBD 11:01 → TELE 11:02 → TELE-WESTW 09-05 17:26 → DOU IN ICU 09-05 17:38 → TELE-WESTW 09-05 21:51 → ICU CENTRL 09-06 14:49 → DOU IN ICU 09-06 14:50 → CATH ICU 09-12 12:54 → TELE-CENTR 09-16 12:54
PROVIDERS: ADMIT Nurse Practitioner Family; ATTEND Family Medicine
PROC: 5A09357 Assistance with Respiratory Ventilation, Less than 24 Consecutive Hours, Continuous Positive Airway Pressure (ICD-10-PCS; 2020-09-05)
PROC: 5A1955Z Respiratory Ventilation, Greater than 96 Consecutive Hours (ICD-10-PCS; principal; 2020-09-06)
PROC: 0BH17EZ Insertion of Endotracheal Airway into Trachea, Via Natural or Artificial Opening (ICD-10-PCS; 2020-09-06)
PROC: 02HV33Z Insertion of Infusion Device into Superior Vena Cava, Percutaneous Approach (ICD-10-PCS; 2020-09-06)
PROC: 4A143B0 Monitoring of Venous Pressure, Central, Percutaneous Approach (ICD-10-PCS; 2020-09-06)
DX: T40.2X2A Poisoning by other opioids, intentional self-harm, initial encounter (principal); N17.0 Acute kidney failure with tubular necrosis; J96.02 Acute respiratory failure with hypercapnia; J69.0 Pneumonitis due to inhalation of food and vomit; I50.33 Acute on chronic diastolic (congestive) heart failure; J96.01 Acute respiratory failure with hypoxia; G92 Toxic encephalopathy; A41.9 Sepsis, unspecified organism; E87.1 Hypo-osmolality and hyponatremia; G93.1 Anoxic brain damage, not elsewhere classified; I13.0 Hypertensive heart and chronic kidney disease with heart failure and stage 1 through stage 4 chronic kidney disease, or unspecified chronic kidney disease; J44.0 Chronic obstructive pulmonary disease with (acute) lower respiratory infection; E66.2 Morbid (severe) obesity with alveolar hypoventilation; E87.4 Mixed disorder of acid-base balance; Z20.828 Contact with and (suspected) exposure to other viral communicable diseases; T50.7X2A Poisoning by analeptics and opioid receptor antagonists, intentional self-harm, initial encounter; E87.5 Hyperkalemia; N18.9 Chronic kidney disease, unspecified; F41.9 Anxiety disorder, unspecified; G89.4 Chronic pain syndrome; D64.9 Anemia, unspecified; E87.6 Hypokalemia; F17.200 Nicotine dependence, unspecified, uncomplicated; M79.7 Fibromyalgia; M25.532 Pain in left wrist; F32.9 Major depressive disorder, single episode, unspecified; Z83.3 Family history of diabetes mellitus; Z68.34 Body mass index [BMI] 34.0-34.9, adult; Z79.899 Other long term (current) drug therapy; Z88.5 Allergy status to narcotic agent; Z88.0 Allergy status to penicillin; Y92.89 Other specified places as the place of occurrence of the external cause
CPT/HCPCS: 36415; 36600; 70450; 71045; 72125; 76775; 80048; 80053; 80202; 80307; 80329; 81001; 82306; 82550; 82570; 82805; 82962; 83036; 83605; 83735; 83880; 83970; 84100; 84132; 84300; 84484; 85007; 85025; 85027; 87040; 87070; 87077; 87086; 87186; 87205; 87426; 92610; 93005; 93306; 94002; 94003; 94640; 94660; 96365; 96367; 96375; 96376; 97110; 97116; 97163; 97530; C9113; G0378; J0330; J0610; J1815; J1885; J1956; J2185; J2250; J2405; J3480; J3490; J7060